=== PATIENT | male | born 1965 | race Caucasian/White ===

== ENCOUNTER 2020-07-22 10:19 | Inpatient (IN) | payer OTHER, MEDICAID, SELFPAY ==
[2020-07-22] VITALS (16 sets, daily range): BP systolic 127–183; BP diastolic 80–118; PULSE 70–91; RESP 12–21; TEMP 36.4–36.9; O2SAT 94–99; BMI 27.6; BMI 23.6
--- NOTE | 2020-07-22 | DI.US.S_ITS ---
PROCEDURE: US CAROTID DOPPLER BI INDICATIONS: CVA TECHNIQUE: Color and pulse Doppler interrogation was performed of both carotid systems, with image documentation and velocity measurements. COMPARISON: None. FINDINGS: Stenosis calculations are based on SRU (Society of Radiologists in Ultrasound) criteria. The flow velocities and the arterial waveforms are normal within both carotid arterial systems. Atherosclerotic plaque is seen on both sides. The estimated degree of internal carotid artery stenosis is less than 50%. Antegrade flow is confirmed within both vertebral arteries. IMPRESSION: No hemodynamically significant stenosis is seen. Atherosclerotic plaque is noted bilaterally. Dictated by: Ravi Holder M.D. on 07/23/2020 at 11:53 Approved by: Ravi Holder M.D. on 07/23/2020 at 11:53
[2020-07-22 10:59] LABS: Add Manual Diff / Slide Review NO; Basophils Absolute Auto 100 /uL (0-100); Basophils Percent Auto 0.5 % (0-2); Eosinophils Absolute Auto 300 /uL (0-450); Eosinophils Percent Auto 2.4 % (2-4); Hematocrit 46.1 % (41-53); Hemoglobin 15.8 g/dL (13.5-17.5); Lymphocytes Absolute Auto 1400 /uL (1100-4500); Lymphocytes Percent Auto 13.5 % (25-40); Mean Corpuscular HGB Conc 34.2 % (30-36); Mean Corpuscular Hemoglobin 30.3 PG (26-34); Mean Corpuscular Volume 88.4 fL (80-100); Monocytes Absolute Auto 1000 /uL (0-900); Monocytes Percent Auto 9.3 % (3-14); Neutrophils Absolute Auto 7800 /uL (1500-7000); Neutrophils Percent Auto 74.3 % (50-75); Platelet Count 336 X10^3/uL (150-400); Red Blood Cell Count 5.22 X10^6/uL (4.5-5.9); Red Cell Distribution Width 14.1 % (11.6-14.8); White Blood Cell Count 10.5 X10^3/uL (4.5-11.0)
--- NOTE | 2020-07-22 11:08 | ED.NEUROSD ---
HPI - Neuro Symptoms/Deficit General Chief Complaint: Neuro Symptoms/Deficit Stated Complaint: Going paralyzed over body/poss Parkinsons Time Seen by Provider: 07/22/20 10:27 Source: patient Mode of arrival: Wheelchair Limitations: no limitations History of Present Illness HPI Narrative: Patient is a 55-year-old male who comes emergency department today with his brother for evaluation of what he describes as ?going paralyzed all over ?he states that his symptoms have been going on for the past year but really worsening over the past couple days/week. He is new to the area from [place]. He states that he was being evaluated in [place] for Parkinson's disease. He states that he does not have the diagnosis of Parkinson's disease but is being treated for it. When asked him what this medication was he said it was propanolol. When I questioned him about this he states that the propanolol was because of tremors. It does not appear that he is on any and levodopa/carbidopa. He does have an extensive alcohol history. Has not drank since March of this year. At that point he did try to commit suicide and cut his neck. He states he did this because of the shaking and that things were getting worse. He has not had anything to drink since March. He denies any other drugs. He states that he has had a ?silent stroke? in the past. He denies any residual deficits from this. Is not on anticoagulation. He states that over the past several days and weeks his tremor seem to be getting worse. He states he has a difficult time standing up. Once he can walk he has some difficulty with this but is still able to walk without assistance. He does describe trouble with stopping walking. And also trouble with sitting. Has not tried anything for his symptoms. Has not followed up with his new primary doctor here in the local area of with regard to this. On Anticoagulants: No Related Data Home Medications Medication Instructions Recorded Confirmed propranolol 10 mg PO TID PRN 07/22/20 07/22/20 Allergies Allergy/AdvReac Type Severity Reaction Status Date / Time No Known Drug Allergies Allergy Verified 07/22/20 10:55 Review of Systems Constitutional Constitutional: Denies fatigue, Denies fever(s), Denies frequent falls and Denies headache(s) Eyes Eyes: Reports blurry vision ENT Ears, Nose, Mouth, and Throat: Denies vertigo, Denies dizziness, Denies headache(s) and Reports disequilibrium Cardiovascular Cardiovascular: Denies chest pain, Denies syncope and Denies dyspnea Respiratory Respiratory: Denies dyspnea Genitourinary Genitourinary: Denies dysuria Genitourinary: Denies dysuria Musculoskeletal Musculoskeletal: Reports abnormal gait, Denies arthralgias, Denies back pain, Reports muscle cramps, Reports myalgias, Denies numbness and Reports stiffness Comments: Tremors Integumentary/Breasts Skin/Breast: Denies rash Neurologic Neurologic: Denies abnormal speech, Reports abnormal gait, Denies confusion, Denies vertigo, Denies dizziness, Denies syncope, Denies frequent falls, Denies headache(s), Reports lack of coordination, Denies memory loss, Denies numbness, Reports tremor(s) and Reports disequilibrium Psychiatric Psychiatric: Denies anxiety and Denies confusion Endocrine Endocrine: Denies fatigue Hematologic/Lymphatic On Anticoagulants: No Allergic/Immunologic Allergic/Immunologic: Denies urticaria Patient History Medical History Alcohol abuse Social History lives independently: Yes Exam Initial Vital Signs Initial Vital Signs: Vital Signs Temperature 98.5 F 07/22/20 10:34 Pulse Rate 78 07/22/20 10:34 Respiratory Rate 16 07/22/20 10:34 Blood Pressure 183/118 H 07/22/20 10:34 Pulse Oximetry 97 07/22/20 10:34 Const General: cooperative, anxious and diaphoretic Limitations: mental status not altered [facility] Head: normal to inspection and normocephalic Ears: hearing grossly normal bilaterally Nose: external nose normal Face and sinus: normal facial exam Mouth: oral mucosae normal Eyes General: appearance normal, both eyes and all related structures Pupils: PERRL EOM: EOM intact bilaterally Chest Chest: No crepitus and No tenderness Resp Effort & Inspection: normal respiratory effort Auscultation: clear to auscultation bilaterally Cardio Rate: regular rate Rhythm: regular rhythm GI Inspection: non-distended Palpation: soft and No tender Skin Lesions: no lesions Rashes: no rashes Other: Diaphoretic Neuro General: patient alert, patient awake and patient oriented x3 Cognition: normal cognition Other: Patient is alert oriented x3. Can move all 4 extremities equally. His cranial nerves are intact except for decreased sensation to light touch to the left side of his face. He also has some discomfort with smiling but this appears to be equal. His eye exam is unremarkable. [id number] and wiro-[id number]-[id number] bilaterally unremarkable although he does have some more discomfort with doing that on his left side. He describes decreased sensation to his left upper extremity left lower extremity to light touch. 4/5 strength bilateral lower extremities. 5/5 strength righ upper extremity. 4/5 strength left upper extremity. 2+ patella tendon equal bilaterally. 2+ biceps tendon bilaterally equal. Extrem General: normal to inspection, capillary refill normal and No edema Psych Appearance: grossly normal and disheveled Scores GCS [place] coma scale eye opening: Spontaneous [place] coma scale verbal response: Orientated [place] coma scale motor response: Obey commands [place] coma scale total score: 15 Course Orders Ordered: ED Orders 07/22/20 10:47 Ammonia (NH3) Stat Complete Blood Count AUTO DIFF Stat Comprehensive Metabolic Panel Stat Ethanol (ETOH) Stat Lipase Stat Thyroid Stimulating Hormone Stat 07/22/20 11:13 CT head/brain wo con Stat 07/22/20 11:18 Urinalysis and Microscopic Stat Urine Drug Screen, Rapid Stat 07/22/20 12:04 MR head/brain wo/w con Stat 07/22/20 13:42 EKG-12 Lead Stat Discontinued Medications Diazepam (Diazepam 5 Mg Tablet) 5 mg PO NOW ONE Stop: 07/22/20 11:13 Last Admin: 07/22/20 11:35 Dose: 5 mg Documented by: SAMUEL Diazepam (Diazepam 5 Mg Tablet) 5 mg PO NOW ONE Stop: 07/22/20 14:38 Last Admin: 07/22/20 14:43 Dose: 5 mg Documented by: BTONELoli Vital Signs Vital signs: Vital Signs - 8 hr 07/22/20 10:34 07/22/20 10:38 07/22/20 11:00 Temperature 98.5 F Pulse Rate 78 83 86 Respiratory Rate 16 21 18 Blood Pressure 183/118 H 146/98 H Pulse Oximetry 97 95 96 07/22/20 11:33 07/22/20 11:34 07/22/20 12:00 Temperature Pulse Rate 83 78 79 Respiratory Rate 17 16 Blood Pressure 154/88 H 144/80 H Pulse Oximetry 95 95 95 07/22/20 12:30 07/22/20 13:00 07/22/20 13:30 Temperature Pulse Rate 77 70 74 Respiratory Rate Blood Pressure 136/99 H 127/87 139/93 H Pulse Oximetry 94 95 96 07/22/20 14:00 07/22/20 14:30 07/22/20 15:37 Temperature Pulse Rate 81 91 H 87 Respiratory Rate Blood Pressure 153/99 H Pulse Oximetry 96 96 97 07/22/20 15:38 07/22/20 16:00 Temperature Pulse Rate 84 79 Respiratory Rate Blood Pressure 148/96 H 149/103 H Pulse Oximetry 97 97 MDM - Neuro Symptoms/Deficit Lab Data Attestation: I reviewed the patient's lab results. Result diagrams: 07/22/20 10:47 07/22/20 10:47 Labs: Lab Results 07/22/20 07/22/20 07/22/20 Range/Units 10:47 10:47 10:47 WBC 10.5 (4.5-11.0) X10^3/uL RBC 5.22 (4.5-5.9) X10^6/uL Hgb 15.8 (13.5-17.5) g/dL Hct 46.1 (41-53) % MCV 88.4 (80-100) fL MCH 30.3 (26-34) PG MCHC 34.2 (30-36) % RDW 14.1 (11.6-14.8) % Plt Count 336 (150-400) X10^3/uL Neut % (Auto) 74.3 (50-75) % Lymph % (Auto) 13.5 L (25-40) % [place] % (Auto) 9.3 (3-14) % Eos % (Auto) 2.4 (2-4) % Baso % (Auto) 0.5 (0-2) % Neut # (Auto) 7800 H (9122-1167) /uL Lymph # (Auto) 1400 (9241-2651) /uL [place] # (Auto) 1000 H (0-900) /uL Eos # (Auto) 300 (0-450) /uL Baso # (Auto) 100 (0-100) /uL Sodium 136 L (137-145) mmol/L Potassium 4.3 (3.4-5.1) mmol/L Chloride 101 (98-107) mmol/L Carbon Dioxide 26 (22-32) mmol/L BUN 20 (9-20) mg/dL Creatinine 0.67 (0.66-1.25) mg/dL Estimated GFR > 60.0 (>60) mL/min BUN/Creatinine Ratio 29.9 H (6-22) Glucose 121 H (70-100) mg/dL Calcium 10.2 (8.4-10.2) mg/dL Total Bilirubin 0.6 (0.2-1.3) mg/dL AST 24 (17-59) IU/L ALT 24 (<50) IU/L Alkaline Phosphatase 73 (38-126) U/L Ammonia (9-30) umol/L Total Protein 7.9 (6.3-8.2) g/dL Albumin 4.4 (3.5-5.0) g/dL Globulin 3.5 (1.7-4.1) g/dL Albumin/Globulin Ratio 1.3 (1.0-2.8) Lipase 108 (23-300) U/L TSH 0.778 (0.47-4.68) uIU/mL Urine Color Urine Appearance Urine pH (4.5-8.0) Ur Specific [place] (1.000-1.035) Urine Protein (Negative) Urine Glucose (UA) (Negative) g/dL Urine Ketones (NEGATIVE) Urine Occult Blood (Negative) Urine Nitrate (Negative) Urine Bilirubin (NEGATIVE) Urine Urobilinogen (0.2) E.U./dL Ur Leukocyte Esterase (NEGATIVE) Urine RBC (0-5/HPF) Urine WBC (0-5/HPF) Ur Squamous Epith Cells (0-5/HPF) Urine Bacteria (None) Hyaline Casts (None) Urine Mucus (Negative) Ur Culture Indicated? U Opiates 300ng/mL cut (Negative) Ur Oxycodone Screen (Negative) Urine Methadone Screen (Negative) Ur Barbiturates Screen (Negative) U Tricyclic Antidepress (Negative) Ur Phencyclidine Scrn (Negative) Ur Amphetamines Screen (Negative) U Methamphetamines Scrn (Negative) Ur MDMA Scrn (Ecstasy) (Negative) U Benzodiazepines Scrn (Negative) Urine Cocaine Screen (Negative) U Marijuana (THC) Screen (Negative) Ethyl Alcohol < 10 ( - 10) mg/dL 07/22/20 07/22/20 07/22/20 Range/Units 10:47 11:18 11:18 WBC (4.5-11.0) X10^3/uL RBC (4.5-5.9) X10^6/uL Hgb (13.5-17.5) g/dL Hct (41-53) % MCV (80-100) fL MCH (26-34) PG MCHC (30-36) % RDW (11.6-14.8) % Plt Count (150-400) X10^3/uL Neut % (Auto) (50-75) % Lymph % (Auto) (25-40) % [place] % (Auto) (3-14) % Eos % (Auto) (2-4) % Baso % (Auto) (0-2) % Neut # (Auto) (7154-3739) /uL Lymph # (Auto) (5884-8311) /uL [place] # (Auto) (0-900) /uL Eos # (Auto) (0-450) /uL Baso # (Auto) (0-100) /uL Sodium (137-145) mmol/L Potassium (3.4-5.1) mmol/L Chloride (98-107) mmol/L Carbon Dioxide (22-32) mmol/L BUN (9-20) mg/dL Creatinine (0.66-1.25) mg/dL Estimated GFR (>60) mL/min BUN/Creatinine Ratio (6-22) Glucose (70-100) mg/dL Calcium (8.4-10.2) mg/dL Total Bilirubin (0.2-1.3) mg/dL AST (17-59) IU/L ALT (<50) IU/L Alkaline Phosphatase (38-126) U/L Ammonia < 9 L (9-30) umol/L Total Protein (6.3-8.2) g/dL Albumin (3.5-5.0) g/dL Globulin (1.7-4.1) g/dL Albumin/Globulin Ratio (1.0-2.8) Lipase (23-300) U/L TSH (0.47-4.68) uIU/mL Urine Color Yellow Urine Appearance Clear Urine pH 5.5 (4.5-8.0) Ur Specific [place] 1.025 (1.000-1.035) Urine Protein 1+ H (Negative) Urine Glucose (UA) Negative (Negative) g/dL Urine Ketones Negative (NEGATIVE) Urine Occult Blood Negative (Negative) Urine Nitrate Negative (Negative) Urine Bilirubin Negative (NEGATIVE) Urine Urobilinogen 0.2 (0.2) E.U./dL Ur Leukocyte Esterase Negative (NEGATIVE) Urine RBC 0-1/hpf (0-5/HPF) Urine WBC 0-1/hpf (0-5/HPF) Ur Squamous Epith Cells 0-1 /hpf (0-5/HPF) Urine Bacteria Occasional (0-1) (None) Hyaline Casts 1-5/lpf (None) Urine Mucus 1+ H (Negative) Ur Culture Indicated? Cult not indicated U Opiates 300ng/mL cut Negative (Negative) Ur Oxycodone Screen Negative (Negative) Urine Methadone Screen Negative (Negative) Ur Barbiturates Screen Negative (Negative) U Tricyclic Antidepress Negative (Negative) Ur Phencyclidine Scrn Negative (Negative) Ur Amphetamines Screen Negative (Negative) U Methamphetamines Scrn Negative (Negative) Ur MDMA Scrn (Ecstasy) Negative (Negative) U Benzodiazepines Scrn Negative (Negative) Urine Cocaine Screen Negative (Negative) U Marijuana (THC) Screen Negative (Negative) Ethyl Alcohol ( - 10) mg/dL Imaging Data CT scan - head: Radiologist's Impression: [address] [id number] Scan ReportSigned Patient: Matheus OlivoMR#: [id number]: 1965Acct:[id number]/Sex: 55 / MDate of Service: 07/22/20Loc: EDAccession Number: [id number] Procedure: CT head/brain wo con Ordering Provider: Ignacio Hilario D.O. PROCEDURE: CT HEAD/BRAIN WO CON INDICATIONS: Tremors and weakness TECHNIQUE: Noncontrast 4.5 mm thick angled axial sections acquired from the foramen magnum to the vertex, with coronal and sagittal reformats. For radiation dose reduction, the following was used: automated exposure control, adjustment of mA and/or kV according to patient size. COMPARISON: None. FINDINGS: Image quality: Excellent. CSF spaces: Basal cisterns are patent. An arachnoid cyst can be seen involving the posterior aspect posterior fossa. There is narrowing of the left lateral ventricle. Brain: There is poorly defined low density seen involving the deep white matter of the left frontal lobe. This process measures at least 4.7 cm AP. There is associated mild mass effect, with minimal midline shift of 1-2 mm. No intracranial masses or hemorrhage. [place]ieto-white matter interface is normal. Skull and face: Calvarium and visualized facial bones are intact, without suspicious lesions. Incidental note is made of an abnormal C1 arch, with non fusion anteriorly and posteriorly, as on series 3, image 1. Sinuses: Visualized sinuses and mastoids are clear. IMPRESSION: Abnormal low-density can be seen involving the deep white matter of the left frontal lobe. Differential diagnosis includes an underlying neoplasm or brain edema. When clinically appropriate, a dedicated brain MRI (without and with contrast) is recommended for further evaluation (assuming that there is no contraindication). Note: Findings and recommendations discussed by telephone with Dr. Hilario at 11:02 a.m. [place] time on July 22, 2020. Dictated by: Ravi Holder M.D. on 07/22/2020 at 11:00 Approved by: Ravi Holder M.D. on 07/22/2020 at 11:03 MRI brain: Radiologist's Impression: [address] [id number] Resonance ReportSigned Patient: Matheus Olivo#: [id number]: 1965Acct:[id number]/Sex: 55 / MDate of Service: 07/22/20Loc: EDAccession Number: [id number] Procedure: MR head/brain wo/w con Ordering Provider: Ignacio Hilario D.O. PROCEDURE: MR HEAD/BRAIN WO/W CON INDICATIONS: poss mass seen on CT TECHNIQUE: Noncontrast axial T1 spin echo, axial T2 fast spin echo, sagittal and axial FLAIR, coronal T2 fast spin echo, axial gradient echo, axial diffusion and ADC through the brain. After the administration of contrast, axial and coronal 3D VIBE or T1 spin echo with fat saturation through the brain. COMPARISON: [facility], CT, CT HEAD/BRAIN WO CON, 07/22/2020, 11:17. FINDINGS: Image quality: Excellent. CSF Spaces: Basal cisterns are patent. There is an arachnoid cyst involving the posterior aspect of the posterior fossa. Brain: In this patient with this given history, scrutiny is given to the area of the CT abnormality within the deep white matter/superior basal ganglia of the left frontal lobe. At this site, there is mild abnormal FLAIR signal seen, as on series 7, image 15. Scrutiny is given to abnormal enhancement and none can be seen. No abnormal diffusion-weighted signal can be seen within this region to suggest acute or subacute infarction. Mass effect is seen, with narrowing of the left lateral ventricle and a minimal degree of midline shift, 1-2 mm. The brainstem appears normal. Diffusion-weighted images demonstrate no acute ischemic insults. No chronic ischemic insults. Normal intravascular flow voids are present. Skull and face: Calvarial marrow is normal in signal. Orbits appear normal. Sinuses: Sinuses and mastoids appear clear. IMPRESSION: No mass or abnormal enhancement can be seen at the site the CT abnormality. However, there is abnormal FLAIR signal seen as well as mass effect. This is felt most likely to be related to subacute to chronic ischemic change (at least 2-weeks-old). If clinically appropriate, please consider a follow-up brain MRI (without and with contrast) in 4-8 weeks. Dictated by: Ravi Holder M.D. on 07/22/2020 at 14:40 Approved by: Ravi Holder M.D. on 07/22/2020 at 14:49 ECG Data Attestation: I personally reviewed and interpreted this ECG as follows: Prior ECG tracings: not available for review Interpretation: Sinus rhythm Ventricular rate is 74 Normal axis Normal QRS Normal QTC No ST T wave changes MDM Narrative Medical decision making narrative: Patient does have a somewhat confusing presentation. Initially he stated that the symptoms that brought him in today started approximately 1 year ago but it seems that things have somewhat changed/worsened over the past couple days/week. His biggest complaint today is that he is having difficulty standing and getting out of the chair. His neurologic exam is also somewhat confusing. I did consider etiologies such as morning he has encephalopathy but he does not have any the ocular changes in his not encephalopathic. Consider Korsakoff's syndrome. Considered [place] however does not fit this presentation either. There is still the possibility of MS. Also considered other infectious etiologies such as encephalitis/meningitis but again he does not fit these specific pathology patterns. The non con head CT was concerning for potential frontal lobe mass. The subsequent MRI was not consistent with a mass but more consistent with a subacute to chronic ischemic change. This could potentially be causing his worsening of symptoms over the past several days. I discussed the case with tele stroke who did not feel the patient needed emergent tPA and I agree with this. She recommended that I speak with the neurologist. I then spoke with Dr. James with Neurology at [facility] in [place]. He recommended admitting the patient for further stroke workup to include cardiac monitoring, echocardiogram, aspirin and statin. He stated that if his progression over the next several hours/days is not consistent with a subacute stroke then he would consider doing lumbar puncture and an MRI of the spine and potential transfer for further neurologic evaluation. I discussed the case with Dr. Stevenson with Internal Medicine who will admit for further evaluation treatment. I did discuss this with the patient. We did discuss the need for admission. They both expressed understanding agreement. Discharge Plan Departure Patient Disposition: Admitted As Inpatient Clinical Impression: Cerebrovascular accident, Essential tremor Admit Date/Time: 07/22/20 17:31 Admit Provider: Femi Stevenson
[2020-07-22 11:12] LABS: Alanine Aminotransferase 24 IU/L (<50); Albumin 4.4 g/dL (3.5-5.0); Albumin Globulin Ratio 1.3 (1.0-2.8); Alkaline Phosphatase 73 U/L (38-126); Ammonia (NH3) < 9 umol/L (9-30); Aspartate Aminotransferase 24 IU/L (17-59); BUN Creatinine Ratio 29.9 (6-22); Bilirubin Total 0.6 mg/dL (0.2-1.3); Blood Urea Nitrogen 20 mg/dL (9-20); Calcium 10.2 mg/dL (8.4-10.2); Carbon Dioxide 26 mmol/L (22-32); Chloride 101 mmol/L (98-107); Estimated Glomerular Filt Rate > 60.0 mL/min (>60); Ethanol (ETOH) < 10 mg/dL; Globulin 3.5 g/dL (1.7-4.1); Glucose 121 mg/dL (70-100); HEMOLYSIS < 15 (0-50); Lipase 108 U/L (23-300); Potassium 4.3 mmol/L (3.4-5.1); Sodium 136 mmol/L (137-145); Total Protein 7.9 g/dL (6.3-8.2)
--- NOTE | 2020-07-22 11:13 | DI.CT.S_ITS ---
PROCEDURE: CT HEAD/BRAIN WO CON INDICATIONS: Tremors and weakness TECHNIQUE: Noncontrast 4.5 mm thick angled axial sections acquired from the foramen magnum to the vertex, with coronal and sagittal reformats. For radiation dose reduction, the following was used: automated exposure control, adjustment of mA and/or kV according to patient size. COMPARISON: None. FINDINGS: Image quality: Excellent. CSF spaces: Basal cisterns are patent. An arachnoid cyst can be seen involving the posterior aspect posterior fossa. There is narrowing of the left lateral ventricle. Brain: There is poorly defined low density seen involving the deep white matter of the left frontal lobe. This process measures at least 4.7 cm AP. There is associated mild mass effect, with minimal midline shift of 1-2 mm. No intracranial masses or hemorrhage. Nieto-white matter interface is normal. Skull and face: Calvarium and visualized facial bones are intact, without suspicious lesions. Incidental note is made of an abnormal C1 arch, with non fusion anteriorly and posteriorly, as on series 3, image 1. Sinuses: Visualized sinuses and mastoids are clear. IMPRESSION: Abnormal low-density can be seen involving the deep white matter of the left frontal lobe. Differential diagnosis includes an underlying neoplasm or brain edema. When clinically appropriate, a dedicated brain MRI (without and with contrast) is recommended for further evaluation (assuming that there is no contraindication). Note: Findings and recommendations discussed by telephone with Dr. Hilario at 11:02 a.m. [place] time on July 22, 2020. Dictated by: Ravi Holder M.D. on 07/22/2020 at 11:00 Approved by: Ravi Holder M.D. on 07/22/2020 at 11:03
[2020-07-22 11:24] LABS: Appearance Urine UA CLEAR; Bilirubin Urine UA NEGATIVE (NEGATIVE); Color Urine UA YELLOW; Glucose Urine UA NEGATIVE (Negative); Ketones Urine UA NEGATIVE (NEGATIVE); Leukocyte Esterase Urine UA NEGATIVE (NEGATIVE); Nitrite Urine UA NEGATIVE (Negative); Occult Blood Urine UA NEGATIVE (Negative); Protein Urine UA 1+ (Negative); Specific Gravity Urine UA 1.025 (1.000-1.035); Urobilinogen Urine UA 0.2 E.U./dL (0.2); pH Urine UA 5.5 (4.5-8.0)
[2020-07-22 11:29] LABS: UR Morphine/Opiate cutoff 300 Negative (Negative); Ur Creatinine Normal (Normal); Ur Specific Gravity Normal (Normal); Urine Amphetamines Negative (Negative); Urine Barbiturates Negative (Negative); Urine Benzodiazepines Negative (Negative); Urine Cocaine Negative (Negative); Urine MDMA Negative (Negative); Urine Methadone Negative (Negative); Urine Methamphetamines Negative (Negative); Urine Oxycodone Negative (Negative); Urine Phencyclidine Negative (Negative); Urine Tetrahydrocannabinol Negative (Negative); Urine Tricyclic Antidepressant Negative (Negative); Urine pH Normal (Normal)
[2020-07-22] MEDS: diazePAM 5 MG TABLET PO ×2 (11:35→14:43)
[2020-07-22 11:38] LABS: Bacteria Urine Occasional (0-1); Culture Indicated Urine Cult Not Indicated; Hyaline Casts Urine 1-5/LPF; Mucus Urine 1+ (Negative); RBC Urine 0-1/HPF (0-5/HPF); Squamous Epithelial Cell Urine 0-1 /HPF (0-5/HPF); WBC Urine 0-1/HPF (0-5/HPF)
[2020-07-22 11:50] LABS: Thyroid Stimulating Hormone 0.778 uIU/mL (0.47-4.68)
--- NOTE | 2020-07-22 12:04 | DI.MRI.S_ITS ---
PROCEDURE: MR HEAD/BRAIN WO/W CON INDICATIONS: poss mass seen on CT TECHNIQUE: Noncontrast axial T1 spin echo, axial T2 fast spin echo, sagittal and axial FLAIR, coronal T2 fast spin echo, axial gradient echo, axial diffusion and ADC through the brain. After the administration of contrast, axial and coronal 3D VIBE or T1 spin echo with fat saturation through the brain. COMPARISON: [facility], CT, CT HEAD/BRAIN WO CON, 07/22/2020, 11:17. FINDINGS: Image quality: Excellent. CSF Spaces: Basal cisterns are patent. There is an arachnoid cyst involving the posterior aspect of the posterior fossa. Brain: In this patient with this given history, scrutiny is given to the area of the CT abnormality within the deep white matter/superior basal ganglia of the left frontal lobe. At this site, there is mild abnormal FLAIR signal seen, as on series 7, image 15. Scrutiny is given to abnormal enhancement and none can be seen. No abnormal diffusion-weighted signal can be seen within this region to suggest acute or subacute infarction. Mass effect is seen, with narrowing of the left lateral ventricle and a minimal degree of midline shift, 1-2 mm. The brainstem appears normal. Diffusion-weighted images demonstrate no acute ischemic insults. No chronic ischemic insults. Normal intravascular flow voids are present. Skull and face: Calvarial marrow is normal in signal. Orbits appear normal. Sinuses: Sinuses and mastoids appear clear. IMPRESSION: No mass or abnormal enhancement can be seen at the site the CT abnormality. However, there is abnormal FLAIR signal seen as well as mass effect. This is felt most likely to be related to subacute to chronic ischemic change (at least 2-weeks-old). If clinically appropriate, please consider a follow-up brain MRI (without and with contrast) in 4-8 weeks. Dictated by: Ravi Holder M.D. on 07/22/2020 at 14:40 Approved by: Ravi Holder M.D. on 07/22/2020 at 14:49
--- NOTE | 2020-07-22 15:32 | PC.NURSE ---
Patient back from MRI, requesting to eat. Patient NPO until MRI results
--- NOTE | 2020-07-22 16:29 | PC.NURSE ---
Patient sitting in chair at bedside, eating food brother brought in. Ok Per MD Hilario
--- NOTE | 2020-07-22 19:15 | DI.ECHO.S_ITS ---
[place] [facility]---------+ [facility] +---------+ : : [address] : [address] : : : : [id number] : : : : Phone: [phone]+ Echocardiogram Report + + :Name: CHEMO MALDONADO Study Date: 07/23/2020 Height: 74 in : :[facility] ReadingLocation: Weight: 215 lb : : Gender: Male BSA: 2.2 m2 : :: 1965 Age: 55 yrs BP: 135/80 mmHg: :Reason For Study: CVA : :Ordering Physician: FLACA, : :ZUNILDA Performed By: Padmini Bloom : :Referring: ZUNILDA THAYER : + + Interpretation Summary The left ventricle is grossly normal size. The ejection fraction is estimated to be 60-65%. No obvious LV thrombus. The right ventricle is normal in size and function. No significant valvular pathology seen. Injection of contrast documented no interatrial shunt. The ascending aorta is mildly enlarged. No significant atherosclerotic plaque in the aortic arch. The IVC is of normal diameter and collapses greater than 50% with a sniff. This suggests a low right atrial pressure of 3 mm Hg. The patient was in sinus rhythm with heart rates between 74-82 bpm during the exam. Procedure: A two-dimensional transthoracic echocardiogram with color flow and Doppler was performed. The study quality was technically adequate. There is no prior echocardiogram noted for this patient. The injection was performed through an intravenous line in the left arm. The patient was in sinus rhythm with heart rates between 74-82 bpm during the exam. Left Ventricle: The left ventricle is grossly normal size. There is normal left ventricular wall thickness. There is no thrombus. The ejection fraction is estimated to be 60-65%. There are no obvious focal wall motion abnormalities noted but poor endocardial definition reduces the sensitivity for the detection of such. Diastolic parameters suggest a relaxation abnormality of the left ventricle, consistent with probable normal filling pressures. Right Ventricle: The right ventricle is normal in size and function. Atria: Both atria are normal in size. There is no Doppler evidence for an interatrial shunt. Injection of contrast documented no interatrial shunt. Mitral Valve: The mitral valve leaflets appear mildly thickened, but open well. There is mild mitral annular calcification. The mitral valve leaflets are mildly calcified. The mitral valve chordae are thickened and/or calcified. Redundant elongated chordae are noted. There is trace mitral regurgitation. Aortic Valve: The aortic valve is not well visualized. The aortic valve opens well. There is no aortic valve stenosis. No aortic regurgitation is present. Tricuspid Valve: The tricuspid valve is normal. There is trace tricuspid regurgitation. Pulmonary artery pressures cannot be estimated because of the lack of a measurable TR jet velocity but the IVC suggests a CVP of around 3 mmHg. Pulmonic Valve: The pulmonic valve is not well seen, but is grossly normal. There is no pulmonic valvular regurgitation. Great Vessels: The aortic root is normal size. The ascending aorta is mildly enlarged. The IVC is of normal diameter and collapses greater than 50% with a sniff. This suggests a low right atrial pressure of 3 mm Hg. Pericardium/ Pleura There is no pericardial effusion. There is no pleural effusion. MMode/2D Measurements & Calculations LVIDd: 4.6 cm LVOT diam: 2.1 cm LVIDs: 2.9 cm Ao root diam: 3.8 cm FS: 36.2 % asc Aorta Diam: 3.7 cm IVSd: 1.0 cm Ao Arch Diam (Prox Trans): 2.9 cm LVPWd: 1.0 cm LV jamison. diameter/BSA (cm/m^2): 2.0 LV sys. diameter/BSA (cm/m^2): 1.3 LA A2 area: 15.9 cm2 RA long axis: 4.6 cm LA A4 area: 12.5 cm2 RA area: 12.9 cm2 LA length (vol): 4.2 cm RA vol: 30.8 ml LA vol: 39.9 ml RA : 13.7 ml/m2 LA vol index: 17.8 ml/m2 IVC diam: 0.89 cm RVD1 (basal): 3.5 cm TAPSE: 1.9 cm Doppler Measurements & Calculations Ao V2 max: 97.5 cm/sec LVOT Max Joni: 91.9 cm/sec Ao V2 mean: 72.8 cm/sec LV V1 max P.4 mmHg Ao max P.8 mmHg LV V1 VTI: 18.8 cm Ao mean P.3 mmHg KARIME(I,D): 3.2 cm2 Ao V2 VTI: 20.8 cm KARIME(V,D): 3.3 cm2 sev ratio: 0.91 KARIME indexed to BSA (cm^2/m^2): 1.4 MV E max joni: 49.7 cm/sec PA V2 max: 75.9 cm/sec MV A max joni: 54.1 cm/sec PA V2 mean: 57.4 cm/sec MV E/A: 0.92 PA mean P.4 mmHg Med Peak E' Joni: 4.9 cm/sec PA pr(Accel): 32.8 mmHg E/E' med: 10.1 Lat Peak E' Joni: 8.0 cm/sec E/E' lat: 6.2 E/e' average: 8.2 MV dec time: 0.23 sec SV(LVOT): 65.5 ml Reading Physician:01:07 PM
[2020-07-22 20:31] LABS: COVID19 - ADMIT (NP swab/PCR) Negative (Negative)
[2020-07-22] MEDS: ASPIRIN 325 MG TABLET PO (20:44)
[2020-07-22] MEDS: OXYCODONE IR 5 MG TABLET PO (20:45)
[2020-07-22] MEDS: CYCLOBENZAPRINE 10 MG TABLET PO (20:45)
[2020-07-22] MEDS: PROPRANOLOL 40 MG TABLET PO (20:46)
[2020-07-22] MEDS: ATORVASTATIN 20 MG TABLET 80 MG PO (21:34)
[2020-07-22] MEDS: MELATONIN 3 MG TABLET 6 MG PO (21:34)
--- NOTE | 2020-07-22 22:54 | P.HP_ITS ---
History of Present Illness History of Present Illness Date Patient Seen: 07/22/20 Time Patient Seen: 17:54 Chief complaint: Going paralyzed over body/poss Parkinsons Narrative: Mr. Olivo is a 55M with PMH of tremor, alcohol abuse quit in march 2020, ?CVA who states that he has been having neurologic symptoms that have been progressively getting worse. History is vague and difficult to get a clear answer. Patient states that he recently arrived in [place] from [place]. He was being seen in [place] for a tremor that developed in his left hand. Apparently he had previously been prescribed primidone, and is now prescribed propanolol. This indicates that patient was probably thought to have essential tremor. Per the ED note, there was workup for Parkinsons, but per patient he never saw a neurologist, and the patient now says he self-diagnosed as Parkinson s and has not been diagnosed as such. He did state he tried to commit suicide in March due to the worsening tremors. He has progressively been worsening and over the last two weeks has noted a tremor in his right hand. He has difficulty with rising from chair. He has difficulty with starting or stopping walking. He has difficulty with sitting. He has slowed speech. He has some drooling. He has not had hallucination, he has not had altered mental status. He has not had incontinence. He denies fevers or chills. No abdominal pain. No shortness of breath. No difficulty with vision, no difficulty with swallowing. Patient History Medical History Alcohol abuse Family & Social History Social History: household members other Prior Living Arrangements House lives independently Yes Safety & Behavioral: Feels Safe in Current Yes Environment Been Physically Hurt or No Threatened By a Person Suicidal Ideation Description None Suicide Plan Description No Plan Tobacco & Substance use: Smoking Status Former smoker alcohol intake former Meds Home Medications and Allergies Home Medications Medication Instructions Recorded Confirmed Type propranolol 10 mg PO TID PRN 07/22/20 07/22/20 History Allergies Allergy/AdvReac Type Severity Reaction Status Date / Time No Known Drug Allergies Allergy Verified 07/22/20 10:55 Review of Systems Review of Systems Narrative: 14 systems reviewed and negative aside from what is noted in HPI Exam Vital Signs (past 8 hours): - 07/22/20 15:37 07/22/20 15:38 07/22/20 16:00 Temperature Pulse Rate 87 84 79 Respiratory Rate Blood Pressure 148/96 H 149/103 H Pulse Oximetry 97 97 97 07/22/20 18:54 07/22/20 21:33 Temperature 97.5 F L Pulse Rate 88 87 Respiratory Rate 12 16 Blood Pressure 149/86 H 135/80 Pulse Oximetry 99 96 Oxygen Delivery Method Room Air Oxygen Flow Rate 0 Narrative Exam Narrative: GEN: no acute distress, masked facies HEENT: moist mucous membranes, PERRL CV: RRR, no murmurs PULM: CTAB/L, no wheezes, rhonchi, rales ABD: soft, nontender, nondistended, no organomegaly EXT: warm and well perfused with no edema NEURO: awake and alert x3, he has decreased sensation per his report in his left shoulder and left arm, extraocular movements intact, 4/5 strength left upper and lower extremity with 5/5 strength on the right. He is slow to initiate movement, he has resting tremor on his left arm, he does have rigidity of his left extremities PSYCH: flat affect Objective Labs Result Diagrams: 07/22/20 10:47 07/22/20 10:47 Labs: Laboratory Results - last 24 hr 07/22/20 07/22/20 07/22/20 10:47 10:47 10:47 WBC 10.5 RBC 5.22 Hgb 15.8 Hct 46.1 MCV 88.4 MCH 30.3 MCHC 34.2 RDW 14.1 Plt Count 336 Neut % (Auto) 74.3 Lymph % (Auto) 13.5 L [place] % (Auto) 9.3 Eos % (Auto) 2.4 Baso % (Auto) 0.5 Neut # (Auto) 7800 H Lymph # (Auto) 1400 [place] # (Auto) 1000 H Eos # (Auto) 300 Baso # (Auto) 100 Sodium 136 L Potassium 4.3 Chloride 101 Carbon Dioxide 26 BUN 20 Creatinine 0.67 Estimated GFR > 60.0 BUN/Creatinine Ratio 29.9 H Glucose 121 H Calcium 10.2 Total Bilirubin 0.6 AST 24 ALT 24 Alkaline Phosphatase 73 Ammonia Total Protein 7.9 Albumin 4.4 Globulin 3.5 Albumin/Globulin Ratio 1.3 Lipase 108 TSH 0.778 Urine Color Urine Appearance Urine pH Ur Specific [place] Urine Protein Urine Glucose (UA) Urine Ketones Urine Occult Blood Urine Nitrate Urine Bilirubin Urine Urobilinogen Ur Leukocyte Esterase Urine RBC Urine WBC Ur Squamous Epith Cells Urine Bacteria Hyaline Casts Urine Mucus Ur Culture Indicated? Nasal Screen MRSA (PCR) U Opiates 300ng/mL cut Ur Oxycodone Screen Urine Methadone Screen Ur Barbiturates Screen U Tricyclic Antidepress Ur Phencyclidine Scrn Ur Amphetamines Screen U Methamphetamines Scrn Ur MDMA Scrn (Ecstasy) U Benzodiazepines Scrn Urine Cocaine Screen U Marijuana (THC) Screen Ethyl Alcohol < 10 SARS-CoV-2 (PCR) 07/22/20 07/22/20 07/22/20 10:47 11:18 11:18 WBC RBC Hgb Hct MCV MCH MCHC RDW Plt Count Neut % (Auto) Lymph % (Auto) [place] % (Auto) Eos % (Auto) Baso % (Auto) Neut # (Auto) Lymph # (Auto) [place] # (Auto) Eos # (Auto) Baso # (Auto) Sodium Potassium Chloride Carbon Dioxide BUN Creatinine Estimated GFR BUN/Creatinine Ratio Glucose Calcium Total Bilirubin AST ALT Alkaline Phosphatase Ammonia < 9 L Total Protein Albumin Globulin Albumin/Globulin Ratio Lipase TSH Urine Color Yellow Urine Appearance Clear Urine pH 5.5 Ur Specific [place] 1.025 Urine Protein 1+ H Urine Glucose (UA) Negative Urine Ketones Negative Urine Occult Blood Negative Urine Nitrate Negative Urine Bilirubin Negative Urine Urobilinogen 0.2 Ur Leukocyte Esterase Negative Urine RBC 0-1/hpf Urine WBC 0-1/hpf Ur Squamous Epith Cells 0-1 /hpf Urine Bacteria Occasional (0-1) Hyaline Casts 1-5/lpf Urine Mucus 1+ H Ur Culture Indicated? Cult not indicated Nasal Screen MRSA (PCR) U Opiates 300ng/mL cut Negative Ur Oxycodone Screen Negative Urine Methadone Screen Negative Ur Barbiturates Screen Negative U Tricyclic Antidepress Negative Ur Phencyclidine Scrn Negative Ur Amphetamines Screen Negative U Methamphetamines Scrn Negative Ur MDMA Scrn (Ecstasy) Negative U Benzodiazepines Scrn Negative Urine Cocaine Screen Negative U Marijuana (THC) Screen Negative Ethyl Alcohol SARS-CoV-2 (PCR) 07/22/20 07/22/20 19:18 19:18 WBC RBC Hgb Hct MCV MCH MCHC RDW Plt Count Neut % (Auto) Lymph % (Auto) [place] % (Auto) Eos % (Auto) Baso % (Auto) Neut # (Auto) Lymph # (Auto) [place] # (Auto) Eos # (Auto) Baso # (Auto) Sodium Potassium Chloride Carbon Dioxide BUN Creatinine Estimated GFR BUN/Creatinine Ratio Glucose Calcium Total Bilirubin AST ALT Alkaline Phosphatase Ammonia Total Protein Albumin Globulin Albumin/Globulin Ratio Lipase TSH Urine Color Urine Appearance Urine pH Ur Specific [place] Urine Protein Urine Glucose (UA) Urine Ketones Urine Occult Blood Urine Nitrate Urine Bilirubin Urine Urobilinogen Ur Leukocyte Esterase Urine RBC Urine WBC Ur Squamous Epith Cells Urine Bacteria Hyaline Casts Urine Mucus Ur Culture Indicated? Nasal Screen MRSA (PCR) Negative for mrsa U Opiates 300ng/mL cut Ur Oxycodone Screen Urine Methadone Screen Ur Barbiturates Screen U Tricyclic Antidepress Ur Phencyclidine Scrn Ur Amphetamines Screen U Methamphetamines Scrn Ur MDMA Scrn (Ecstasy) U Benzodiazepines Scrn Urine Cocaine Screen U Marijuana (THC) Screen Ethyl Alcohol SARS-CoV-2 (PCR) Negative Assessment & Plan Assessment & Plan narrative: Mr. Olivo is a 55M with PMH of long standing alcohol use, quite in march, previous suicide attempt, and progressively worsening neurologic symptoms of unclear etiology found to imaging to have had possible subacute stroke. 1. Subacute stroke, possible -radiology read is somewhat equivocal, but states that most likely cause of findings is subacute stroke -subacute nature would fit in timeline of patient's worsening symptoms -ED physician spoke to neurology Dr. James at [facility] and discussed neurologic findings, and CT/MRI of brain -neurology recommended admit here and workup further for stroke with echo, aspirin, and statin -if these are not consistent with subacute stroke then LP and MRI spine can be considered next and to recall neurology to consider transfer -overall clinical presentation per my evaluation is less likely to be stroke, and think it is unlikely basal ganglia white matter stroke would cause presenting symptoms -for now will workup MRI findings: echo, carotid us, a1c, lipids ordered for risk stratification -ordered for aspirin and statin -q4 NIH scores -PT/OT speech therapy consult 2. Parkinsonism, chronic -patient has been presumably diagnosed with essential tremor as he is given propanolol and primidone previously -however his possible differential is quite broad -parkinsons, ET, MSA, lewy body dementia, or other similar parkinsonism diseases -in order to further evaluate would benefit from neurology evaluation either inp atient or outpatient -would plan to reconsult neurology pending completion of stroke workup -for now will continue propanolol for tremor, may be able to increase dose if needed or may consider gabapentin if needed additional treatment 3. Chronic alcohol abuse, history of -encourage continued abstinence from alcohol IVF: none DIET: pending swallow screen DVT ppx: lovenox sc Code: DNR, proxy is brotherJason Bijan MIPS - Admit I confirm the patient?s Advance Care Plan is present, Code status is documented, Surrogate decision maker is in patient?s record [If Yes, STOP here]: Yes
--- NOTE | 2020-07-22 23:29 | PC.ADMIT ---
[email or web address] Admission Note: The patient,Matheus Olivo,55 y/o, was given written information regarding hospital policies, unit procedures and contact persons. Patient's smoking status: Former smoker. Vital Signs - 8 hr 07/22/20 15:37 07/22/20 15:38 07/22/20 16:00 Temperature Pulse Rate 87 84 79 Respiratory Rate Blood Pressure 148/96 H 149/103 H Pulse Oximetry 97 97 97 07/22/20 18:54 07/22/20 21:33 Temperature 97.5 F L Pulse Rate 88 87 Respiratory Rate 12 16 Blood Pressure 149/86 H 135/80 Pulse Oximetry 99 96 Patient admitted for stroke symptoms by hospitalist. This RN assessed NIH at 3 for limb ataxia and slight slurred speech. Vitals WNL. Medications sent to pharmacy. Patient oriented to room and call light system. Able to make needs known. Brother at bedside.
[2020-07-23] VITALS (7 sets, daily range): BP systolic 126–150; BP diastolic 82–102; PULSE 68–89; RESP 14–19; TEMP 36.2–36.6; O2SAT 95–99
[2020-07-23 05:00] LABS: Add Manual Diff / Slide Review NO; Basophils Absolute Auto 100 /uL (0-100); Basophils Percent Auto 0.5 % (0-2); Eosinophils Absolute Auto 400 /uL (0-450); Eosinophils Percent Auto 3.9 % (2-4); Hematocrit 42.4 % (41-53); Hemoglobin 14.4 g/dL (13.5-17.5); Lymphocytes Absolute Auto 2200 /uL (1100-4500); Lymphocytes Percent Auto 23.2 % (25-40); Mean Corpuscular HGB Conc 33.9 % (30-36); Mean Corpuscular Volume 88.6 fL (80-100); Monocytes Absolute Auto 1200 /uL (0-900); Monocytes Percent Auto 12.1 % (3-14); Neutrophils Absolute Auto 5800 /uL (1500-7000); Neutrophils Percent Auto 60.3 % (50-75); Platelet Count 308 X10^3/uL (150-400); Red Blood Cell Count 4.79 X10^6/uL (4.5-5.9); White Blood Cell Count 9.6 X10^3/uL (4.5-11.0)
[2020-07-23 05:15] LABS: BUN Creatinine Ratio 36.5 (6-22); Blood Urea Nitrogen 27 mg/dL (9-20); Calcium 9.7 mg/dL (8.4-10.2); Carbon Dioxide 31 mmol/L (22-32); Chloride 100 mmol/L (98-107); Estimated Glomerular Filt Rate > 60.0 mL/min (>60); Glucose 98 mg/dL (70-100); HEMOLYSIS < 15 (0-50); Potassium 4.3 mmol/L (3.4-5.1); Sodium 137 mmol/L (137-145)
[2020-07-23 05:18] LABS: Cholesterol 174 mg/dL (140-199); HDL Cholesterol 42 mg/dL (40-60); LDL Cholesterol Calculated 110 mg/dL (<100); Triglycerides 110 mg/dL (35-150)
--- NOTE | 2020-07-23 06:52 | PC.NURSE ---
Rack Worker Note-Patient slept all night, woke in am for lab draws, ate a snack, no swallowing problems. NIH 3, rigidness, mild tremors, and pain continues to LUE and LLE, has difficulty starting with ambulating, needs SBA. SR w/ BBB, VSS.
[2020-07-23 06:55] LABS: Hemoglobin A1C% w Est Avg Glu 5.9 % (4.0-6.0)
[2020-07-23] MEDS: OXYCODONE IR 5 MG TABLET PO (09:45)
[2020-07-23] MEDS: ASPIRIN EC 81 MG TABLET PO (09:45)
[2020-07-23] MEDS: CYCLOBENZAPRINE 10 MG TABLET PO ×2 (09:45→21:14)
[2020-07-23] MEDS: SODIUM CHLORIDE 0.9% FLUSH 10 ML IV ×2 (09:45→21:15)
--- NOTE | 2020-07-23 12:10 | PT.IIE ---
Medical History Alcohol abuse Physical Therapy Inpatient Evaluation/Re-Eval M1 PT/OT-IP Prior Functional Status Start: 07/23/20 12:49 Freq: NEEDED Status: Active Protocol: Document 07/23/20 12:10 AB (Rec: 07/23/20 13:03 AB [email or web address]) Medical Review Prior Functional Status Medical History Reviewed Yes Communication able to make needs known Mobility and Gait pt stated that he is modified independent with all mobilities and ambulation using SPC but occasionally FWW . pt stated that he uses SPC more often than FWW Social History Household Members other Living Arrangements House Number of Floors (Floors) One Floor Number of Stairs To Enter/Railing? 6 steps L rail ascending Home Environment Standard Height Toilet,Walk in Shower Home Equipment Front Wheel Walker,Straight Cane Additional Social History Comment pt stated that he lives in a house with roommates and there will not be any assistance at home for him M2 PT-IP Current Condition Start: 07/23/20 12:49 Freq: NEEDED Status: Active Protocol: Document 07/23/20 12:10 AB (Rec: 07/23/20 13:03 [email or web address]) Physical Therapy Current Condition Current Condition Evaluation Date 07/23/20 Treatment Diagnosis CVA; parkinsonism; difficulty in walking Onset Date 07/22/20 Precautions Other Precautions falls M3 PT-IP Subjective Start: 07/23/20 12:49 Freq: NEEDED Status: Active Protocol: Document 07/23/20 12:10 AB (Rec: 07/23/20 13:03 [email or web address]) Subjective Physical Therapy Visit Type Type Initial Evaluation Visit Start Time 12:10 Visit Stop Time 12:40 Total Visit Minutes 30 Number of POWER MARKETER Visits 0 Physical Therapy Visit Comments Patient Comments pt is agreeable to do PT and is requesting to use the toilet Therapy Pain Assessment Pain When Pain Assessed At Rest Pain Present Pain Present Pain Reported Location Left Hip Scale Used pain scale not stated Pain Management Techniques Distraction,Modification of Treatment M4 PT-IP Mobility and Gait Start: 07/23/20 12:49 Freq: NEEDED Status: Active Protocol: Document 07/23/20 12:10 AB (Rec: 07/23/20 13:03 AB [email or web address]) PT-Bed Mobility Assessment Supine to Sit Supine to Sit Standby Assistance PT-Transfer Assessment Sit to and From Stand Sit to and from Stand Contact Guard Assistance, Minimal Assistance,1 Person Assistance,Use of Upper Extremities Equipment Transfer Assistive Device Gait Belt,Front Wheeled Walker Orthotic/Prosthetic Devices or Brace: No Transfers Transfer Destination Toilet Transfer Technique ambulated using FWW Transfer Ability Level of Assist Minimal Assistance,Moderate Assistance,Use of Upper Extremities Comments Mobility Comments pt completed supine to sit SBA . was able to sit on EOB SBA. completed sit to stand CGA to min A. pt can be impulsive and instructed to slow down. pt stated that it is harder to move when he does things slow and feels like he is stuck. completed ambulation to the toilet using FWW min to mod A and cues. presents with ataxic gait, forward head/trunk posture with episodes of feezing requiring assist for weight shifting for initiation of steps/movement. pt was able to maintain standing CGA while assisted with brief management. ambulated towards the sink using FWW min A and max cues and was able to maintain standing CGA while completing handwashing. pt ambulated to the chair using FWW min A. educated pt on safety and weight shifting techniques to assist with ambulation. completed sit to stand from chair CGA to min A. instructed with marching in place and to increase LE elevation and completed with mod A and max cues. presents with difficulty with LLE elevation with (+) tremores on LUE/LE. pt agreed to stay up on chair. call light and table placed within reach. Gait Assessment Gait Gait Assistance Required: Minimum Assistance,Maximum Assistance Distance (Feet) 15 Able to Maintain Weight Bearing Status Yes During Gait Assistive Devices Assistive Device Gait Belt,Front Wheeled Walker Orthotic/Prosthetic Devices or Brace: No Gait Deviations General Gait Pattern Ataxic,Decreased Stride Length ,Decreased Feet Clearance, Festinating,Flexed Trunk, Narrow Based Gait Factors Limiting Gait Function Factors Limiting Gait Function Abnormal Tonal Influences, Decreased Activity Tolerance, Decreased Sensation,Decreased Strength,Difficulty Following Directions,Limited Range of Motion,Pain,Poor Balance,Poor Safety Awareness PT-Balance Assessment Sitting Balance and Reactions Static Sitting Balance Ability Good Dynamic Sitting Balance Ability Fair Standing Balance and Reactions Static Standing Balance Ability Fair Dynamic Standing Balance Ability Poor Device Used FWW M5 PT-IP Objective Assessments Start: 07/23/20 12:49 Freq: NEEDED Status: Active Protocol: Document 07/23/20 12:10 AB (Rec: 07/23/20 13:03 AB [email or web address]) Orientation Orientation/Cognition Level of Alertness Alert Orientation Name,Place,Situation Language Function Ability No Deficits Noted Safety Awareness Decreased Safety Awareness Gross Range of Motion Lower Extremity ROM Assessment Within Functional Limits Strength Lower Extremity Strength Assessment Left Impaired Hip 4-/5 Knee 3+/5 Sensation Assessment Sensation Gross Sensation Left UE Impaired,Right LE Impaired,Left LE Impaired Sensation Description Numbness Comments Sensation Comments c/o numbness on L hand/fingers and bilateral toes Muscle Tone Muscle Tone WNL No Muscle Tone Location Left Upper Extremity Type of Tone Hypertonicity Severity of Tone Moderate Manifistation of Tone Resting Tremors M6 PT-IP Treatment Start: 07/23/20 12:49 Freq: NEEDED Status: Active Protocol: Document 07/23/20 12:10 AB (Rec: 07/23/20 13:03 AB [email or web address]) Physical Therapy Treatment Education Education Provided Safety M7 PT-IP Assessment and Plan Start: 07/23/20 12:49 Freq: NEEDED Status: Active Protocol: Document 07/23/20 12:10 AB (Rec: 07/23/20 13:03 AB [email or web address]) PT Summary Assessment and Plan Potential Rehabilitation Potential Good Status of Condition at Evaluation Evolving Summary Impairments Pain,ROM,Strength,Balance, Coordination,Sensation,Tone, Cognition,Bed Mobility, Transfers,Gait,Activity Tolerance Assessment Summary pt requiring mod A with ambulation using FWW with max cues with all tasks. pt with freezing episodes and needed assist to initiate movement. pt lives alone and does not have any assistance at home and will need to be more independent than current level . pt will need SNF rehab to improve mobility and independence. Goals Bed Mobility Goal Standby Assistance Transfer Goal Standby Assistance,Front Wheeled Walker Gait Goal Standby Assistance,Front Wheel Walker Gait Distance 100 Other Goals improve ambualtion using SPC SBA 100 ft p/down 6 steps L rail + SPC SBA Days to Meet Goals 10 Frequency of Treatment Frequency Of Treatment Once a Day Treatment Plan Physical Therapy Treatment Plan Bed Mobility Training,Transfer Training,Gait Training, Therapeutic Exercise,Balance Retraining,Discharge Planning, Hot or Cold Pack,Neuromuscular Re-ed,Coordination Retraining ,Manual Therapy Precautions Other Precautions falls Recommendations To Nursing Amount of Assist Needed 1 Person Assist Discharge Recommendations PT Discharge Recommendations SNF Rehab Transportation Needs at Discharge Wheelchair/Cabulance
--- NOTE | 2020-07-23 14:09 | DIET.PN ---
Dietary Progress Note Assessment: 55y M admitted with progressively worsening neurologic sx described by patient as body-wide charley horse with inability to move L arm which is in contracture referred to nutrition for reported weight loss. HT: 74 WT:185# (-13% in 3mo, severe) UBW: 230# but more recently 213# BMI: 23.6 Pt reports neurological sx worsening since March. Pt lives alone without local support. Pt unable to chop food on plate or prepare meals secondary to impaired motor fxn, pt unable to open bag of bread himself, unable to open carton of milk74. Pt has been subsisting on water and cold, canned ravioli and cold, canned spaghetti, canned fruit cocktail x3mo. Pt able to consume these foods because they have a flip top lid he can open. Labs: A1c 5.9 WNL, TC 174 WNL, LDL 110 MNA:5 malnourished Eulalio:21 Nutrition Diagnosis: Severe Acute PCM r/t inability to self feed aeb -13% unintentional weight loss in 3mo (severe), pt reports reduced appetite, pt reports subsisting on cold canned ravioli and water x3mo as this is all he can prepare for himself functionally, pt has recent hx of etoh overuse. Interventions: 1. Recc pt secure local support for help with meals once d/c to support nutrition status. 2. Recc ONS blueberry, banana, yogurt smoothie c dinners to support nutrition status between meals. 3. If pt starts levodopa meds, educated pt on loading PRO intake at nighttime to avoid food/medication interactions. Diet Order: c chopped food EER: 2,100kcal (25kcal/kg), 108g PRO (1.3g/kg per PCM) Monitoring/Evaluations: POs, ONS tolerance
--- NOTE | 2020-07-23 14:23 | PC.NURSE ---
Day Shift Note Alert and oriented x3. SBA with FWW to and from bathroom. Has difficulty initiating steps but steady once moving. Tremors to LUE. NIH score 1 this shift, able to hold up left arm without drift, left leg remains weak. 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 Call light within reach, using appropriately to make needs known. Bed alarm on for safety.
--- NOTE | 2020-07-23 14:55 | OT.IP.EVAL ---
Past Medical History Alcohol abuse Occupational Therapy Inpatient Evaluation/Re-Eval M1 PT/OT-IP Prior Functional Status Start: 07/23/20 12:49 Freq: NEEDED Status: Active Protocol: Document 07/23/20 14:55 [facility] (Rec: 07/23/20 17:40 [facility] [id number]) Medical Review Prior Functional Status Medical History Reviewed Yes Communication able to make needs known Mobility and Gait pt stated that he is modified independent with all mobilities and ambulation using SPC but occasionally FWW . Pt stated that he uses SPC more often than FWW Activities of Daily Living and IADL's Pt states prior had difficulties to dress, toilet and could only pour water on himself for showers as not able to use his LUE to assist fro showering needs. Social History Household Members other Living Arrangements House Number of Floors (Floors) One Floor Number of Stairs To Enter/Railing? 6 steps L rail ascending Home Environment Standard Height Toilet,Walk in Shower Home Equipment Front Wheel Walker,Straight Cane Additional Social History Comment pt stated that he lives in a house with roommates and there will not be any assistance at home for him M2 OT-IP Current Condition Start: 07/23/20 17:16 Freq: Status: Active Protocol: Document 07/23/20 14:55 [facility] (Rec: 07/23/20 17:40 [facility] [id number]) Occupational Therapy Current Condition Current Condition Evaluation Date 07/23/20 Treatment Diagnosis CVA, tremors Diagnosis Onset Date 07/22/20 M3 OT- IP Subjective and Pain Start: 07/23/20 17:16 Freq: Status: Active Protocol: Document 07/23/20 14:55 [facility] (Rec: 07/23/20 17:40 [facility] [id number]) OT- Subjective Occupational Therapy Visit Type Type Re-Evaluation Visit Start Time 14:55 Visit Stop Time 15:38 Total Visit Minutes 43 Occupational Therapy Visit Comments Patient Comments Pt agreed to get up and work with Ot. Patient/Caregiver Goals TO go to rehab and get back to being able to care for himself. OT Pain Assessment Pain When Pain Assessed At Rest Pain Present Pain Present Pain Reported Location Left Hip Intensity 2 Scale Used Numeric (0 - 10) M4 OT- IP ADL's Start: 07/23/20 17:16 Freq: Status: Active Protocol: Document 07/23/20 14:55 [facility] (Rec: 07/23/20 17:40 [facility] [id number]) OT [id number] Comments OT Self-Feeding Comments Per chart, pt needing assist for set-up . OT ADL-Grooming General Evaluation Grooming Ability Standby Assistance Areas Needing Assistance Retrieving/Set-up of Grooming Items OT ADL-Oral Care General Eval Oral Care Ability Independent OT ADL-Dressing General Eval Lower Body Dressing Ability Moderate Assistance Comments OT Dressing Comments Assist to help pull up brief over his left side of his hips . OT ADL-Toileting General Evaluation Toileting Ability Minimal Assistance Areas Needing Assistance Manage Clothing OT ADL-Bathing Comments OT Bathing Comments Not performed. M5 OT- IP IADL's Start: 07/23/20 17:16 Freq: Status: Active Protocol: Document 07/23/20 14:55 [facility] (Rec: 07/23/20 17:40 [facility] [id number]) OT-Instrumental Activities of Daily Living Home Safety Awareness Awareness of Need for Assistance at Home Good Awareness Ability to Problem Solve Emergency Able to Problem Solve Situations M6 OT- IP Functional Cognition Start: 07/23/20 17:16 Freq: Status: Active Protocol: Document 07/23/20 14:55 [facility] (Rec: 07/23/20 17:40 [facility] [id number]) Cognitive Factors Limiting Selfcare Function Cognitive Ability Level of Alertness Alert Patient Orientation Name,Date,Year,Day of Week, Place,Situation Attention Span Ability Capable of Focused Attention, Capable of Sustained Attention Ability to Follow Commands Able to Follow One Step Commands Memory Description Short Term Impaired Cognitive Tests SLUMS Pt scored 20/30 on the SLUMS and normal score for pt's level of education is 27/30. Pt having the most difficulty with short term memory, able to recall 1/5 objects after time passed and able to answer 1/4 questions right after paragraph read. Pt states prior has had a decreased memory. Cognitive Comments Cognitive Assessment Comments Pt needing increased time for movements, especially during small movement and turns with the FWW. Pt states knows what he wants to do but that his left side of his body will not cooperate and that he gets frustrated. OT- Vision and Hearing OT- Hearing Assessment OT- Hearing Assessment WFL OT- Vision Assessment Visual Acuity Glasses All The Time Vision Assessment Comments Pt complaining of blurred vision and hoping to get new glasses soon. M7 OT- IP Mobility and Balance Start: 07/23/20 17:16 Freq: Status: Active Protocol: Document 07/23/20 14:55 [facility] (Rec: 07/23/20 17:40 [facility] [id number]) OT- Bed Mobility Assessment Rolling Type of Rolling Roll to Right Level of Assistance Standby Assistance Supine to Sit Supine to Sit Assist Standby Assistance Sit to Supine Sit to Supine Assist Standby Assistance OT-Transfer Assessment Sit to and From Stand Sit to and from Stand Standby Assistance,Contact Guard Assistance Transfers Transfer Ability Standby Assistance,Contact Guard Assistance Technique Transfer Destination Bed,Toilet Transfer Technique Stand Step Pivot Devices Transfer Assistive Devices Gait Belt,Front Wheeled Walker Comments Mobility Comments Pt tends to use momentum to help get to the edge of the bed. Cued pt to push up from the bed to stand to FWW. OT- Balance Assessment Sitting Balance and Reactions Static Sitting Balance Ability Good Dynamic Sitting Balance Ability Fair Standing Balance and Reactions Static Standing Balance Ability Fair Dynamic Standing Balance Ability Poor M8 OT- IP Objective Assessments Start: 07/23/20 17:16 Freq: Status: Active Protocol: Document 07/23/20 14:55 [facility] (Rec: 07/23/20 17:40 [facility] [id number]) OT Gross Range of Motion Upper Extremity Range of Motion Assessment Left Impaired OT Strength Comments Strength Comments Pt's left biceps and glove boarder 4/5, unable to supinate forearm or facilitate triceps while in supine. To further assess MMT tomorrow. OT- Coordination Assessment Upper Extremity Finger to Nose Test Left UE Impaired OT-Muscle Tone Assessment Muscle Tone WNL No Muscle Tone Location Left Upper Extremity Type of Tone Hypertonicity Severity of Tone Moderate OT Sensation Assessment Comments Summary Comments Decreased sensation for LUE. M9 OT- IP Assessment and Plan Start: 07/23/20 17:16 Freq: Status: Active Protocol: Document 07/23/20 14:55 [facility] (Rec: 07/23/20 17:40 [facility] [id number]) OT Summary Assessment and Plan Potential Rehabilitation Potential Good Analytic Complexity at Evaluation Moderate Summary OT Impairments Range of Motion,Strength, Balance,Coordination,Sensation ,Tone,Functional Cognition, Functional Mobility,Self- Feeding,Grooming,Dressing, Toileting,Bathing,Toilet Transfers,Shower Transfers, Activity Tolerance Progress Towards Goals Slow Progress due to Medical Issues,Slow Progress due to Activity Tolerance,Slow Progress due to Cognition Assessment Summary Pt MOD complexity and main barriers are steps, ataxia, and decreased function for LUE and LLE. Pt would benefit from skilled rehab as not safe to go home at this time. Goals Self-Feeding Goal Independent Grooming Goal Independent Dressing Goal Independent Toileting Goal Independent Bathing Goal Independent Toilet Transfer Goal Independent Shower Transfer Goal Independent Days to Meet Goals 20 Frequency of Treatment Frequency Of Treatment Once a Day Treatment Plan OT Treatment Plan ADL Training,Functional Cognition Training,Functional Mobility,Patient/Family Education,Discharge Planning Other Treatment Recommendations and Next shower Treatment Focus Discharge Recommendations OT Discharge Recommendations SNF Rehab Transportation Needs at Discharge Wheelchair/Cabulance
[2020-07-23] MEDS: BISACODYL 5 MG TABLET PO (16:03)
[2020-07-23] MEDS: polyethylene glycoL 3350 17 GM POWD.PACK PO (16:04)
--- NOTE | 2020-07-23 17:18 | PM.PN.1 ---
Subjective Subjective Date Patient Seen: 07/23/20 Time Patient Seen: 13:00 Interval history: Mr. Olivo is a 55M with PMH of long standing alcohol use, quit in march, previous suicide attempt, and progressively worsening neurologic symptoms of what sound to be worsening rigidity who was admitted with slightly worsening weakness and found to have a subacute CVA. He reports mild improvement in his symptoms today with a muscle relaxant but still is quite stiff and slow. He reports taking 20 minutes to put on pants at home due to stiffness and pain. This has previously been affecting his left side primarily, but now is worsened on the right. He is having difficulty performing his activities of daily living due to this continued rigidity. Exam Vital Signs (past 8 hours): - 07/23/20 13:22 Pulse Rate 81 Respiratory Rate 19 Blood Pressure 145/102 H Pulse Oximetry 98 Oxygen Delivery Method Room Air Oxygen Flow Rate 0 Narrative Exam Narrative: GEN: no acute distress, masked facies HEENT: moist mucous membranes, PERRL CV: RRR, no murmurs PULM: CTAB/L, no wheezes, rhonchi, rales ABD: soft, nontender, nondistended, no organomegaly EXT: warm and well perfused with no edema NEURO: awake and alert x3, reported sensation deficits improved today, extraocular movements intact, 5/5 strength left upper and lower extremity with 5/5 strength on the right. He is slow to initiate movement, he has resting tremor on his left arm, he does have rigidity of his left extremities and to a lesser extent his right. PSYCH: flat affect, calm and cooperative with stable behavior. Objective Labs Result Diagrams: 07/23/20 04:30 07/23/20 04:30 Labs: Laboratory Results - last 24 hr 07/22/20 07/22/20 07/23/20 19:18 19:18 04:30 WBC 9.6 RBC 4.79 Hgb 14.4 Hct 42.4 MCV 88.6 MCH 30.0 MCHC 33.9 RDW 14.0 Plt Count 308 Neut % (Auto) 60.3 Lymph % (Auto) 23.[address] [place] % (Auto) 12.1 Eos % (Auto) 3.9 Baso % (Auto) 0.5 Neut # (Auto) 5800 Lymph # (Auto) 2200 [place] # (Auto) 1200 H Eos # (Auto) 400 Baso # (Auto) 100 Sodium Potassium Chloride Carbon Dioxide BUN Creatinine Estimated GFR BUN/Creatinine Ratio Glucose Hemoglobin A1c Calcium Triglycerides Cholesterol LDL Cholesterol, Calc HDL Cholesterol Nasal Screen MRSA (PCR) Negative for mrsa SARS-CoV-2 (PCR) Negative 07/23/20 07/23/20 07/23/20 04:30 04:30 04:30 WBC RBC Hgb Hct MCV MCH MCHC RDW Plt Count Neut % (Auto) Lymph % (Auto) [place] % (Auto) Eos % (Auto) Baso % (Auto) Neut # (Auto) Lymph # (Auto) [place] # (Auto) Eos # (Auto) Baso # (Auto) Sodium 137 Potassium 4.3 Chloride 100 Carbon Dioxide 31 BUN 27 H Creatinine 0.74 Estimated GFR > 60.0 BUN/Creatinine Ratio 36.5 H Glucose 98 Hemoglobin A1c 5.9 Calcium 9.7 Triglycerides 110 Cholesterol 174 LDL Cholesterol, Calc 110 H HDL Cholesterol 42 Nasal Screen MRSA (PCR) SARS-CoV-2 (PCR) PFSH Medical History Alcohol abuse Social History household members: other lives independently: Yes Smoking Status: Former smoker alcohol intake: former Assessment & Plan Assessment & Plan narrative: Mr. Olivo is a 55M with PMH of long standing alcohol use, quite in march, previous suicide attempt, and progressively worsening neurologic symptoms of unclear etiology found to imaging to have had possible subacute stroke. 1. Subacute stroke, present on admission -radiology read is somewhat equivocal, but states that most likely cause of findings is subacute stroke -subacute nature would fit in timeline of patient's worsening symptoms, although progressive parkinsonian symptoms could also explain this. -ED physician spoke to neurology Dr. aJmes at [facility] and discussed neurologic findings, and CT/MRI of brain -neurology recommended admit here and workup further for stroke with echo, aspirin, and statin -if these are not consistent with subacute stroke then LP and MRI spine can be considered next and to recall neurology to consider transfer. -overall clinical presentation per my evaluation is less likely to be stroke, and think it is unlikely basal ganglia white matter stroke would cause presenting symptoms. This is highly consistent with parkinsonism. -stroke evaluation without significant additional findings. -ordered for aspirin and statin -q4 NIH scores -PT/OT speech therapy consult 2. Parkinsonism, progressive. -patient has been presumably diagnosed with essential tremor as he is given propanolol and primidone previously -however his possible differential is quite broad but likely parkinsonian rigidity. These symptoms are leading to impairment of his daily living including inability to adequately feed himself. Slightly improved with muscle relaxant. -parkinsons, ET, MSA, lewy body dementia, or other similar parkinsonism diseases -in order to further evaluate would benefit from neurology evaluation either inpatient or outpatient, his symptoms are improved with a muscle relaxant currently. -will likely need to reconsult neurology to see if to start trial of levodopa here, transfer, or defer to outpatient neurology. -for now will continue propanolol for tremor, may be able to increase dose if needed or may consider gabapentin if needed additional treatment 3. Chronic alcohol abuse, history of -encourage continued abstinence from alcohol IVF: none DIET: per speech. DVT ppx: lovenox sc Code: DNR, proxy is brotherJason
[2020-07-23] MEDS: PROPRANOLOL 40 MG TABLET PO (19:50)
[2020-07-23] MEDS: ENOXAPARIN 40 MG/0.4 ML SYRINGE SUBCUT (21:14)
[2020-07-23] MEDS: SENNOSIDES 8.6 MG TABLET 17.2 MG PO (21:14)
[2020-07-23] MEDS: MELATONIN 3 MG TABLET 6 MG PO (21:14)
[2020-07-23] MEDS: ATORVASTATIN 20 MG TABLET 80 MG PO (21:14)
[2020-07-24] MEDS: OXYCODONE IR 5 MG TABLET PO ×4 (00:10→21:17)
--- NOTE | 2020-07-24 00:23 | PC.NURSE ---
0000- NIH completed as patient work up is negative. Will continue to monitor and reinstate if there are clinical findings to support.
[2020-07-24 03:38] VITALS: BP 140/93; PULSE 76; RESP 16; TEMP 36.6; O2SAT 94
[2020-07-24 05:11] LABS: BUN Creatinine Ratio 46.6 (6-22); Blood Urea Nitrogen 27 mg/dL (9-20); Calcium 9.8 mg/dL (8.4-10.2); Carbon Dioxide 27 mmol/L (22-32); Chloride 102 mmol/L (98-107); Estimated Glomerular Filt Rate > 60.0 mL/min (>60); Glucose 114 mg/dL (70-100); HEMOLYSIS < 15 (0-50); Magnesium 1.9 mg/dL (1.6-2.3); Potassium 4.1 mmol/L (3.4-5.1); Sodium 135 mmol/L (137-145)
[2020-07-24 08:00] VITALS: BP 138/96; PULSE 83; RESP 18; TEMP 36.8; O2SAT 96
[2020-07-24] MEDS: polyethylene glycoL 3350 17 GM POWD.PACK PO (08:45)
[2020-07-24] MEDS: CYCLOBENZAPRINE 10 MG TABLET PO (08:45)
[2020-07-24] MEDS: ASPIRIN EC 81 MG TABLET PO (08:45)
[2020-07-24] MEDS: SODIUM CHLORIDE 0.9% FLUSH 10 ML IV ×2 (08:46→21:18)
[2020-07-24] MEDS: CARBIDOPA-LEVODOPA 25/100 TABLET 1 EACH PO ×3 (09:40→21:17)
--- NOTE | 2020-07-24 09:49 | PT.IPTN ---
Current Diagnoses Cerebral infarction, unspecified (07/22/20) Physical Therapy Treatment Note M2 PT-IP Current Condition Start: 07/23/20 12:49 Freq: NEEDED Status: Active Protocol: Document 07/23/20 12:10 [facility] (Rec: 07/23/20 13:03 AB [id number]) Physical Therapy Current Condition Current Condition Evaluation Date 07/23/20 Treatment Diagnosis CVA; parkinsonism; difficulty in walking Onset Date 07/22/20 Precautions Other Precautions falls M3 PT-IP Subjective Start: 07/23/20 12:49 Freq: NEEDED Status: Active Protocol: Document 07/24/20 09:39 HH (Rec: 07/24/20 09:49 HH [email or web address]) Subjective Physical Therapy Visit Type Type Treatment Note Visit Start Time 09:10 Visit Stop Time 09:30 Total Visit Minutes 20 Number of BELLOWS FILLER Visits 0 Physical Therapy Visit Comments Patient Comments pt is agreeable to do PT. Therapy Pain Assessment Pain When Pain Assessed At Rest Pain Present Pain Present Pain Reported Location Left Hip Intensity 2 Scale Used Numeric (0 - 10) Pain Management Techniques Distraction,Modification of Treatment M4 PT-IP Mobility and Gait Start: 07/23/20 12:49 Freq: NEEDED Status: Active Protocol: Document 07/24/20 09:39 [facility] (Rec: 07/24/20 09:49 HH [email or web address]) PT-Transfer Assessment Sit to and From Stand Sit to and from Stand Contact Guard Assistance,1 Person Assistance,Use of Upper Extremities Equipment Transfer Assistive Device Gait Belt,Front Wheeled Walker Orthotic/Prosthetic Devices or Brace: No Transfers Transfer Destination Chair Transfer Technique ambulated using FWW Transfer Ability Level of Assist Contact Guard Assistance,1 Person Assistance,Use of Upper Extremities Comments Mobility Comments 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 Stated that he has been feeling better and regained some ROM and strength of his LUE. He was able to reach with LUE and completed finger opposition test slowly. pt then began to amb with this PT with gait belt and FWW . Pt showed less tremors and frozen episodes today. He was able to initiate LE movements with less hesitation but he did freeze mildly during turns . Pt completed amb in ICU floor for 1 lap 200 ft. pt was able to do stand step pivot while turning to right but had to pivot through push press and body rotation for L turns. He then reported of fatigue after and requested to go back to his room. He was able to transfer himself back to chair safely with UE to descend CGA . Call light placed within reach. Gait Assessment Gait Gait Assistance Required: Contact Guard Assist,1 Person Assist Distance (Feet) 200 Assistive Devices Assistive Device Gait Belt,Front Wheeled Walker Orthotic/Prosthetic Devices or Brace: No Gait Deviations General Gait Pattern Ataxic,Decreased Stride Length ,Decreased Feet Clearance, Festinating,Flexed Trunk, Narrow Based Gait Factors Limiting Gait Function Factors Limiting Gait Function Abnormal Tonal Influences, Decreased Activity Tolerance, Decreased Sensation,Decreased Strength,Difficulty Following Directions,Limited Range of Motion,Pain,Poor Balance,Poor Safety Awareness Comments Gait Comments see mobility comments. Stair Climbing Assessment Comments Stair Climbing Comments unable to assess PT-Balance Assessment Sitting Balance and Reactions Static Sitting Balance Ability Good Dynamic Sitting Balance Ability Fair Standing Balance and Reactions Static Standing Balance Ability Good Dynamic Standing Balance Ability Fair Device Used FWW M5 PT-IP Objective Assessments Start: 07/23/20 12:49 Freq: NEEDED Status: Active Protocol: Document 07/23/20 12:10 [facility] (Rec: 07/23/20 13:03 [email or web address]) Orientation Orientation/Cognition Level of Alertness Alert Orientation Name,Place,Situation Language Function Ability No Deficits Noted Safety Awareness Decreased Safety Awareness Gross Range of Motion Lower Extremity ROM Assessment Within Functional Limits Strength Lower Extremity Strength Assessment Left Impaired Hip 4-/5 Knee 3+/5 Sensation Assessment Sensation Gross Sensation Left UE Impaired,Right LE Impaired,Left LE Impaired Sensation Description Numbness Comments Sensation Comments c/o numbness on L hand/fingers and bilateral toes Muscle Tone Muscle Tone WNL No Muscle Tone Location Left Upper Extremity Type of Tone Hypertonicity Severity of Tone Moderate Manifistation of Tone Resting Tremors M6 PT-IP Treatment Start: 07/23/20 12:49 Freq: NEEDED Status: Active Protocol: Document 07/23/20 12:10 AB (Rec: 07/23/20 13:03 AB [email or web address]) Physical Therapy Treatment Education Education Provided Safety M7 PT-IP Assessment and Plan Start: 07/23/20 12:49 Freq: NEEDED Status: Active Protocol: Document 07/24/20 09:39 HH (Rec: 07/24/20 09:49 HH [email or web address]) PT Summary Assessment and Plan Potential Rehabilitation Potential Good Status of Condition at Evaluation Evolving Summary Impairments Pain,ROM,Strength,Balance, Coordination,Sensation,Tone, Cognition,Bed Mobility, Transfers,Gait,Activity Tolerance Assessment Summary pt shows significant improvements today with improved LUE gross and fine motor control who is able to amb 200ft with decreased freezing episodes. However, pt still needs constant close supervision d/t his high fall risks so SNF rehab is still the best option for him at this point Goals Bed Mobility Goal Standby Assistance Transfer Goal Standby Assistance,Front Wheeled Walker Gait Goal Standby Assistance,Front Wheel Walker Gait Distance 100 Other Goals improve ambualtion using SPC SBA 100 ft p/down 6 steps L rail + SPC SBA Days to Meet Goals 10 Frequency of Treatment Frequency Of Treatment Once a Day Treatment Plan Physical Therapy Treatment Plan Bed Mobility Training,Transfer Training,Gait Training, Therapeutic Exercise,Balance Retraining,Discharge Planning, Hot or Cold Pack,Neuromuscular Re-ed,Coordination Retraining ,Manual Therapy Precautions Other Precautions falls Recommendations To Nursing Amount of Assist Needed 1 Person Assist Discharge Recommendations PT Discharge Recommendations SNF Rehab Transportation Needs at Discharge Wheelchair/Cabulance
[2020-07-24 12:00] VITALS: BP 129/86; PULSE 89; RESP 17; TEMP 36.8; O2SAT 93
--- NOTE | 2020-07-24 14:26 | OT.IP.TRT ---
Current Diagnoses Cerebral infarction, unspecified (07/22/20) Occupational Therapy Treatment Note M2 OT-IP Current Condition Start: 07/23/20 17:16 Freq: Status: Active Protocol: Document 07/23/20 14:55 [facility] (Rec: 07/23/20 17:40 [facility] [id number]) Occupational Therapy Current Condition Current Condition Evaluation Date 07/23/20 Treatment Diagnosis CVA, tremors Diagnosis Onset Date 07/22/20 M3 OT- IP Subjective and Pain Start: 07/23/20 17:16 Freq: Status: Active Protocol: Document 07/24/20 15:24 [facility] (Rec: 07/24/20 15:31 [facility] [id number]) OT- Subjective Occupational Therapy Visit Type Type Treatment Note Visit Start Time 13:52 Visit Stop Time 14:26 Total Visit Minutes 34 Occupational Therapy Visit Comments Patient Comments Pt states tired but agreed to do stretching for LUE. Patient/Caregiver Goals TO go to skilled rehab. OT Pain Assessment Pain When Pain Assessed At Rest Pain Present Pain Present Pain Reported Location Left Hip Intensity 2 Scale Used Numeric (0 - 10) M4 OT- IP ADL's Start: 07/23/20 17:16 Freq: Status: Active Protocol: Document 07/23/20 14:55 [facility] (Rec: 07/23/20 17:40 [facility] [id number]) OT [id number] Comments OT Self-Feeding Comments Per chart, pt needing assist for set-up . OT ADL-Grooming General Evaluation Grooming Ability Standby Assistance Areas Needing Assistance Retrieving/Set-up of Grooming Items OT ADL-Oral Care General Eval Oral Care Ability Independent OT ADL-Dressing General Eval Lower Body Dressing Ability Moderate Assistance Comments OT Dressing Comments Assist to help pull up brief over his left side of his hips . OT ADL-Toileting General Evaluation Toileting Ability Minimal Assistance Areas Needing Assistance Manage Clothing OT ADL-Bathing Comments OT Bathing Comments Not performed. M5 OT- IP IADL's Start: 07/23/20 17:16 Freq: Status: Active Protocol: Document 07/23/20 14:55 [facility] (Rec: 07/23/20 17:40 [facility] [id number]) OT-Instrumental Activities of Daily Living Home Safety Awareness Awareness of Need for Assistance at Home Good Awareness Ability to Problem Solve Emergency Able to Problem Solve Situations OT- Vision and Hearing OT- Hearing Assessment OT- Hearing Assessment WFL OT- Vision Assessment Visual Acuity Glasses All The Time Vision Assessment Comments Pt complaiing of blurried vision and hoping to get new glasses soon. OT- Balance Assessment Sitting Balance and Reactions Static Sitting Balance Ability Good Dynamic Sitting Balance Ability Fair Standing Balance and Reactions Static Standing Balance Ability Fair Dynamic Standing Balance Ability Poor M8 OT- IP Objective Assessments Start: 07/23/20 17:16 Freq: Status: Active Protocol: Document 07/24/20 15:24 [facility] (Rec: 07/24/20 15:31 [facility] [id number]) OT Gross Range of Motion Upper Extremity Range of Motion Assessment Left Impaired OT Strength Comments Strength Comments Today pt able to actively flex and extend his fingers and also able to do thumb to fingers opposition on left hand. Pt still having difficulty to to initiate activation of supinators in left forearm and triceps. OT- Coordination Assessment Comments Coordination Comments Pt able to grasp the call light today and reach up to his glasses to take off with his left hand today. Pt feel the medication is really helping his tone, in addition pt states slept well for the 1st time in one year. OT-Muscle Tone Assessment Muscle Tone Location Left Upper Extremity Type of Tone Hypertonicity Severity of Tone Mild M9 OT- IP Assessment and Plan Start: 07/23/20 17:16 Freq: Status: Active Protocol: Document 07/24/20 15:24 [facility] (Rec: 07/24/20 15:31 [facility] [id number]) OT Summary Assessment and Plan Potential Rehabilitation Potential Good Analytic Complexity at Evaluation Moderate Summary OT Impairments Range of Motion,Strength, Balance,Coordination,Sensation ,Tone,Functional Cognition, Functional Mobility,Self- Feeding,Grooming,Dressing, Toileting,Bathing,Toilet Transfers,Shower Transfers, Activity Tolerance Progress Towards Goals Slow Progress due to Medical Issues,Slow Progress due to Activity Tolerance,Slow Progress due to Cognition Assessment Summary Noted improvement with left arm function and now able to assist more for his needs. However pt still has lot of weakness in LUE and LLE , in addition to decreased control. Pt would benefit from skilled rehab and motivated to care for himself again. Goals Self-Feeding Goal Independent Grooming Goal Independent Dressing Goal Independent Toileting Goal Independent Bathing Goal Independent Toilet Transfer Goal Independent Shower Transfer Goal Independent Days to Meet Goals 15 Frequency of Treatment Frequency Of Treatment Once a Day Treatment Plan OT Treatment Plan ADL Training,Functional Cognition Training,Functional Mobility,Patient/Family Education,Discharge Planning Other Treatment Recommendations and Next shower Treatment Focus Discharge Recommendations OT Discharge Recommendations SNF Rehab Transportation Needs at Discharge Wheelchair/Cabulance
[2020-07-24] MEDS: BISACODYL 5 MG TABLET PO ×2 (14:32→21:17)
[2020-07-24 16:19] VITALS: BP 130/87; PULSE 89; RESP 16; TEMP 36.8; O2SAT 95
--- NOTE | 2020-07-24 16:27 | CM.DPNOTE ---
DCP Note Referral discussed at [facility], will discuss further after she reviews. CARLEE
--- NOTE | 2020-07-24 16:49 | PM.PN.1 ---
Subjective Subjective Date Patient Seen: 07/24/20 Time Patient Seen: 16:49 Interval history: Mr. Olivo is a 55M with PMH of long standing alcohol use, quit in march, previous suicide attempt, and progressively worsening neurologic symptoms of what sound to be worsening rigidity who was admitted with slightly worsening weakness and found to have a subacute CVA. He reports mild improvement in his symptoms today with a muscle relaxant but still is quite stiff and slow. I did discuss with Neurology at [facility] in [place] today and given his disability, they did recommend a trial of Sinemet for at least a couple of weeks to see if there is any improvement and follow-up with an outpatient neurologist as soon as possible. Exam Vital Signs (past 8 hours): - 07/24/20 12:00 07/24/20 16:19 Temperature 98.2 F 98.2 F Pulse Rate 89 89 Respiratory Rate 17 16 Blood Pressure 129/86 130/87 Pulse Oximetry 93 95 Oxygen Delivery Method Room Air Oxygen Flow Rate 0 Narrative Exam Narrative: GEN: no acute distress, masked facies HEENT: moist mucous membranes, PERRL CV: RRR, no murmurs PULM: CTAB/L, no wheezes, rhonchi, rales ABD: soft, nontender, nondistended, no organomegaly EXT: warm and well perfused with no edema NEURO: awake and alert x3, reported sensation deficits improved today, extraocular movements intact, 5/5 strength left upper and lower extremity with 5/5 strength on the right. He is slow to initiate movement, he has resting tremor on his left arm, he does have rigidity of his left extremities and to a lesser extent his right. PSYCH: flat affect, calm and cooperative with stable behavior. Objective Labs Result Diagrams: 07/23/20 04:30 07/24/20 04:50 Labs: Laboratory Results - last 24 hr 07/24/20 04:50 Sodium 135 L Potassium 4.1 Chloride 102 Carbon Dioxide 27 BUN 27 H Creatinine 0.58 L Estimated GFR > 60.0 BUN/Creatinine Ratio 46.6 H Glucose 114 H Calcium 9.8 Magnesium 1.9 PFSH Medical History Alcohol abuse Social History household members: other lives independently: Yes Smoking Status: Former smoker alcohol intake: former Assessment & Plan Assessment & Plan narrative: Mr. Olivo is a 55M with PMH of long standing alcohol use, quite in march, previous suicide attempt, and progressively worsening neurologic symptoms of likely parkinsonism found to imaging to have had possible subacute stroke. 1. Subacute to old stroke, present on admission -radiology read is somewhat equivocal, but states that most likely cause of findings is subacute stroke -subacute nature would fit in timeline of patient's worsening symptoms, although progressive parkinsonian symptoms could also explain this. -ED physician spoke to neurology Dr. James at [facility] and discussed neurologic findings, and CT/MRI of brain -neurology recommended admit here and workup further for stroke with echo, aspirin, and statin. Reconsulted given rigidity and as discussed below. Relevant discussion including review of the MRI states this this may be indicative of old CVA (>2 weeks), rather than subacute. -overall clinical presentation per my evaluation is less likely to be stroke, and think it is unlikely basal ganglia white matter stroke would cause presenting symptoms. This is highly consistent with parkinsonism. -stroke evaluation without significant additional findings. -ordered for aspirin and statin -continue PT/OT/speech. 2. Parkinsonism, progressive. -patient has been presumably diagnosed with essential tremor as he is given propanolol and primidone previously -however his possible differential is quite broad but likely parkinsonian rigidity. These symptoms are leading to impairment of his daily living including inability to adequately feed himself. Slightly improved with muscle relaxant. -parkinsons, ET, MSA, lewy body dementia, or other similar parkinsonism diseases -reconsulted neurology at [place] via phone, recommended initiation of sinemet trial and prompt outpatient neurology follow up. -for now will continue propanolol for tremor, may be able to increase dose if needed or may consider gabapentin if needed additional treatment 3. Chronic alcohol abuse, history of -encourage continued abstinence from alcohol IVF: none DIET: per speech. DVT ppx: lovenox sc Code: DNR, proxy is brotherJason Dispo: possible discharge tomorrow pending PT/OT and unclear if SNF vs home depending on sinemet trial.
[2020-07-24 20:49] VITALS: BP 142/96; PULSE 81; RESP 16; TEMP 36.4; O2SAT 97
[2020-07-24] MEDS: ATORVASTATIN 20 MG TABLET 80 MG PO (21:16)
[2020-07-24] MEDS: MELATONIN 3 MG TABLET 6 MG PO (21:17)
[2020-07-24] MEDS: ENOXAPARIN 40 MG/0.4 ML SYRINGE SUBCUT (21:17)
[2020-07-24] MEDS: SENNOSIDES 8.6 MG TABLET 17.2 MG PO (21:17)
[2020-07-25] VITALS (7 sets, daily range): BP systolic 124–141; BP diastolic 77–105; PULSE 70–102; RESP 18–20; TEMP 36.2–36.7; O2SAT 95–97
[2020-07-25] MEDS: CYCLOBENZAPRINE 10 MG TABLET PO ×2 (05:06→23:32)
[2020-07-25] MEDS: OXYCODONE IR 5 MG TABLET PO (05:06)
[2020-07-25 05:33] LABS: BUN Creatinine Ratio 35.9 (6-22); Blood Urea Nitrogen 23 mg/dL (9-20); Calcium 9.8 mg/dL (8.4-10.2); Carbon Dioxide 30 mmol/L (22-32); Chloride 100 mmol/L (98-107); Estimated Glomerular Filt Rate > 60.0 mL/min (>60); Glucose 100 mg/dL (70-100); HEMOLYSIS < 15 (0-50); Magnesium 1.8 mg/dL (1.6-2.3); Potassium 4.2 mmol/L (3.4-5.1); Sodium 134 mmol/L (137-145)
[2020-07-25] MEDS: CARBIDOPA-LEVODOPA 25/100 TABLET 1 EACH PO ×3 (08:09→21:15)
[2020-07-25] MEDS: ASPIRIN EC 81 MG TABLET PO (08:09)
[2020-07-25] MEDS: BISACODYL 5 MG TABLET PO (08:13)
[2020-07-25] MEDS: polyethylene glycoL 3350 17 GM POWD.PACK PO (08:13)
[2020-07-25] MEDS: SODIUM CHLORIDE 0.9% FLUSH 10 ML IV ×2 (09:05→21:15)
--- NOTE | 2020-07-25 10:22 | OT.IP.TRT ---
Current Diagnoses Cerebral infarction, unspecified (07/22/20) Occupational Therapy Treatment Note M2 OT-IP Current Condition Start: 07/23/20 17:16 Freq: Status: Active Protocol: Document 07/23/20 14:55 [facility] (Rec: 07/23/20 17:40 [facility] [id number]) Occupational Therapy Current Condition Current Condition Evaluation Date 07/23/20 Treatment Diagnosis CVA, tremors Diagnosis Onset Date 07/22/20 M3 OT- IP Subjective and Pain Start: 07/23/20 17:16 Freq: Status: Active Protocol: Document 07/25/20 11:21 [facility] (Rec: 07/25/20 11:27 [facility] [id number]) OT- Subjective Occupational Therapy Visit Type Type Progress Note Visit Start Time 10:10 Visit Stop Time 10:22 Total Visit Minutes 12 Notes P.T. entered room as OT finished with pt. Occupational Therapy Visit Comments Patient Comments My hand is working so much better and I can walk without the walker. OT Pain Assessment Pain When Pain Assessed At Rest Pain Present Pain Present Denied Pain M4 OT- IP ADL's Start: 07/23/20 17:16 Freq: Status: Active Protocol: Document 07/25/20 11:21 [facility] (Rec: 07/25/20 11:27 [facility] [id number]) OT [id number] Comments OT Self-Feeding Comments not meal time OT ADL-Grooming General Evaluation Grooming Ability Standby Assistance Areas Needing Assistance Face Washing Comments OT Grooming Comments standing at sink OT ADL-Oral Care General Eval Oral Care Ability Standby Assistance Areas of Assistance Brushing Teeth Comments Oral Care Comments standing at sink OT ADL-Dressing General Eval Lower Body Dressing Ability Standby Assistance Areas Needing Assistance Socks Comments OT Dressing Comments seated in bed pt was able to use BUE to don socks OT ADL-Toileting General Evaluation Toileting Ability Standby Assistance Comments OT Toileting Comments PT stood at toilet for urination. OT ADL-Bathing Comments OT Bathing Comments Pt performed with nursing prior to OT M5 OT- IP IADL's Start: 07/23/20 17:16 Freq: Status: Active Protocol: Document 07/23/20 14:55 [facility] (Rec: 07/23/20 17:40 [facility] [id number]) OT-Instrumental Activities of Daily Living Home Safety Awareness Awareness of Need for Assistance at Home Good Awareness Ability to Problem Solve Emergency Able to Problem Solve Situations M6 OT- IP Functional Cognition Start: 07/23/20 17:16 Freq: Status: Active Protocol: Document 07/23/20 14:55 [facility] (Rec: 07/23/20 17:40 [facility] [id number]) Cognitive Factors Limiting Selfcare Function Cognitive Ability Level of Alertness Alert Patient Orientation Name,Date,Year,Day of Week, Place,Situation Attention Span Ability Capable of Focused Attention, Capable of Sustained Attention Ability to Follow Commands Able to Follow One Step Commands Memory Description Short Term Impaired Cognitive Tests SLUMS Pt scored 20/30 on the SLUMS and normal score for pt's level of education is 27/30. Pt having the most difficulty with short term memory, able to recall 1/5 objects after time passed and able to answer 1/4 questions right after paragraph read. Pt states prior had a decreased memory. Cognitive Comments Cognitive Assessment Comments Pt needing increased time for movements, especially durign small movement and tunrs with the FWW. Pt states knows what he want sto do but that his left side of his body will not cooperate and that he gets frustrated. OT- Vision and Hearing OT- Hearing Assessment OT- Hearing Assessment WFL OT- Vision Assessment Visual Acuity Glasses All The Time Vision Assessment Comments Pt complaiing of blurried vision and hoping to get new glasses soon. M7 OT- IP Mobility and Balance Start: 07/23/20 17:16 Freq: Status: Active Protocol: Document 07/25/20 11:21 [facility] (Rec: 07/25/20 11:27 [facility] [id number]) OT- Bed Mobility Assessment Supine to Sit Supine to Sit Assist Independent Scooting Scooting to Edge of Bed Independent OT-Transfer Assessment Sit to and From Stand Sit to and from Stand Standby Assistance,Contact Guard Assistance Transfers Transfer Ability Standby Assistance,Contact Guard Assistance Technique Transfer Destination Bed,Chair,Toilet Transfer Technique Stand Step Pivot Devices Transfer Assistive Devices Gait Belt Comments Mobility Comments Pt was able to mobilize around the room with CGA OT- Balance Assessment Sitting Balance and Reactions Static Sitting Balance Ability Normal Dynamic Sitting Balance Ability Good M8 OT- IP Objective Assessments Start: 07/23/20 17:16 Freq: Status: Active Protocol: Document 07/24/20 15:24 [facility] (Rec: 07/24/20 15:31 [facility] [id number]) OT Gross Range of Motion Upper Extremity Range of Motion Assessment Left Impaired OT Strength Comments Strength Comments Today pt able to actively flex and extend his finger and also in opposition thumb to fingers on LUE. Pt still having difficulty to to initiate activation of supinators in forearm and triceps. OT- Coordination Assessment Comments Coordination Comments Pt able to grasp the call light today and reach up to his glasses to take off with his left arm today. Pt feel the medication is really helping his tone, in addition pt states slept well for the 1st time in one year. OT-Muscle Tone Assessment Muscle Tone Location Left Upper Extremity Type of Tone Hypertonicity Severity of Tone Mild M9 OT- IP Assessment and Plan Start: 07/23/20 17:16 Freq: Status: Active Protocol: Document 07/25/20 11:21 [facility] (Rec: 07/25/20 11:27 [facility] [id number]) OT Summary Assessment and Plan Potential Rehabilitation Potential Good Analytic Complexity at Evaluation Moderate Summary OT Impairments Range of Motion,Strength, Balance,Coordination,Sensation ,Tone,Functional Cognition, Functional Mobility,Self- Feeding,Grooming,Dressing, Toileting,Bathing,Toilet Transfers,Shower Transfers, Activity Tolerance Progress Towards Goals Slow Progress due to Medical Issues,Slow Progress due to Activity Tolerance,Slow Progress due to Cognition Assessment Summary Pt is progressing with his abilities quickly. Pt is able to use his L UE as an active assist for ADLs today and demonstrates full extension. Pt ambulated around the room with SBA to CGA without a walker. Pt may progress to a level that would be safe for discharge home with home tana vs outpatient for continued therapy services. Goals Self-Feeding Goal Independent Grooming Goal Independent Dressing Goal Independent Toileting Goal Independent Bathing Goal Independent Toilet Transfer Goal Independent Shower Transfer Goal Independent Days to Meet Goals 15 Frequency of Treatment Frequency Of Treatment Once a Day Treatment Plan OT Treatment Plan ADL Training,Functional Cognition Training,Functional Mobility,Patient/Family Education,Discharge Planning Other Treatment Recommendations and Next shower Treatment Focus Discharge Recommendations OT Discharge Recommendations Home with Assistance,Home Health Other Discharge Recommendations Pt is progressing with his abilities and may be nearing appropriate for discharge home vs SNF. Transportation Needs at Discharge Private Vehicle
--- NOTE | 2020-07-25 10:25 | PT.IPTN ---
Current Diagnoses Cerebral infarction, unspecified (07/22/20) Physical Therapy Treatment Note M2 PT-IP Current Condition Start: 07/23/20 12:49 Freq: NEEDED Status: Active Protocol: Document 07/23/20 12:10 [facility] (Rec: 07/23/20 13:03 [facility] [id number]) Physical Therapy Current Condition Current Condition Evaluation Date 07/23/20 Treatment Diagnosis CVA; parkinsonism; difficulty in walking Onset Date 07/22/20 Precautions Other Precautions falls M3 PT-IP Subjective Start: 07/23/20 12:49 Freq: NEEDED Status: Active Protocol: Document 07/25/20 10:25 [facility] (Rec: 07/25/20 12:16 [facility] [id number]) Subjective Physical Therapy Visit Type Type Treatment Note Visit Start Time 10:25 Visit Stop Time 10:50 Total Visit Minutes 25 Number of [employer] HELPER Visits 0 Physical Therapy Visit Comments Patient Comments pt is agreeble to do PT Therapy Pain Assessment Pain When Pain Assessed At Rest Location Left Hip Intensity 2 Scale Used Numeric (0 - 10) Pain Management Techniques Distraction,Modification of Treatment,Re-positioning, Timing of Activity with Medications M4 PT-IP Mobility and Gait Start: 07/23/20 12:49 Freq: NEEDED Status: Active Protocol: Document 07/25/20 10:25 [facility] (Rec: 07/25/20 12:16 [facility] [id number]) PT-Transfer Assessment Sit to and From Stand Sit to and from Stand Standby Assistance,Contact Guard Assistance,Use of Upper Extremities Equipment Transfer Assistive Device None,Gait Belt Orthotic/Prosthetic Devices or Brace: No Comments Mobility Comments pt sitting on chair and agreed to do PT. pt just finished with OT and also stated that he walked with NAC around the nurses' station x 2. pt completed sit to stand from the chair SBA to CGA and ambulated in room without AD CGA to min A. episodes of freezing and required assist with weigh shifting to move LLE forward. standing balance/ tolerance completed. educated pt on posture, trunk control, weight shifting. completed weight shifting side to side. pt requiring rest breaks in between tasks due to decrease activity tolerance. completed single leg stance x 5 sec hold requiring max A to maintain standing balance without AD' pt completed sit <>stand from the chair without UE use x 8 reps CGA and cues. (+) posterior trunk LOB with initial first reps but able to complete and control trunk better afterwards after education and cues. pt stated that he is tired. positioned on chair. call light and table placed within reach. Gait Assessment Gait Gait Assistance Required: Contact Guard Assist,Minimum Assistance,1 Person Assist Distance (Feet) 30 Able to Maintain Weight Bearing Status Yes During Gait Assistive Devices Assistive Device None,Gait Belt Orthotic/Prosthetic Devices or Brace: No Gait Deviations General Gait Pattern Ataxic,Decreased Stride Length ,Decreased Feet Clearance, Flexed Trunk,Step-to Gait Factors Limiting Gait Function Factors Limiting Gait Function Decreased Activity Tolerance, Decreased Strength,Limited Range of Motion,Pain,Poor Balance,Poor Safety Awareness M5 PT-IP Objective Assessments Start: 07/23/20 12:49 Freq: NEEDED Status: Active Protocol: Document 07/23/20 12:10 [facility] (Rec: 07/23/20 13:03 [facility] [id number]) Orientation Orientation/Cognition Level of Alertness Alert Orientation Name,Place,Situation Language Function Ability No Deficits Noted Safety Awareness Decreased Safety Awareness Gross Range of Motion Lower Extremity ROM Assessment Within Functional Limits Strength Lower Extremity Strength Assessment Left Impaired Hip 4-/5 Knee 3+/5 Sensation Assessment Sensation Gross Sensation Left UE Impaired,Right LE Impaired,Left LE Impaired Sensation Description Numbness Comments Sensation Comments c/o numbness on L hand/fingers and bilateral toes Muscle Tone Muscle Tone WNL No Muscle Tone Location Left Upper Extremity Type of Tone Hypertonicity Severity of Tone Moderate Manifistation of Tone Resting Tremors M6 PT-IP Treatment Start: 07/23/20 12:49 Freq: NEEDED Status: Active Protocol: Document 07/25/20 10:25 [facility] (Rec: 07/25/20 12:16 AB [id number]) Physical Therapy Treatment Education Education Provided Safety Other Treatments Other Treatment Performed falls M7 PT-IP Assessment and Plan Start: 07/23/20 12:49 Freq: NEEDED Status: Active Protocol: Document 07/25/20 10:25 [facility] (Rec: 07/25/20 12:16 AB [id number]) PT Summary Assessment and Plan Potential Rehabilitation Potential Good Summary Impairments Pain,ROM,Strength,Balance, Coordination,Sensation,Tone, Cognition,Bed Mobility, Transfers,Gait,Activity Tolerance Progress Towards Goals Slow Progress due to Medical Issues,Slow Progress due to Activity Tolerance Assessment Summary pt progressing with mobility but continues to have decrease activity tolerance with episodes of freezing and difficulty elevating and moving LLE forwards and also presents with increase flexor tone on LUE with activity. pt will require SNF rehab to improve strength and mobility independence. Goals Bed Mobility Goal Standby Assistance Transfer Goal Standby Assistance,Front Wheeled Walker Gait Goal Standby Assistance,Front Wheel Walker Gait Distance 100 Other Goals improve ambualtion using SPC SBA 100 ft p/down 6 steps L rail + SPC SBA Days to Meet Goals 10 Frequency of Treatment Frequency Of Treatment Once a Day Treatment Plan Physical Therapy Treatment Plan Bed Mobility Training,Transfer Training,Gait Training, Therapeutic Exercise,Balance Retraining,Discharge Planning, Hot or Cold Pack,Neuromuscular Re-ed,Coordination Retraining ,Manual Therapy Precautions Other Precautions falls Recommendations To Nursing Amount of Assist Needed 1 Person Assist Discharge Recommendations PT Discharge Recommendations SNF Rehab Transportation Needs at Discharge Wheelchair/Cabulance
--- NOTE | 2020-07-25 11:10 | P.PN_ITS ---
Subjective Subjective Date Patient Seen: 07/25/20 Time Patient Seen: 11:10 Interval history: Mr. Olivo is a 55M with PMH of long standing alcohol use, quit in march, previous suicide attempt, and progressively worsening neurologic symptoms of what sound to be worsening rigidity who was admitted with slightly worsening weakness and found to have a subacute CVA. He reports improvement in symptoms today with less ridgidity after starting sinemet, although he is still quite stiff on exam. Denies palpitations, dizziness, nausea, vomiting, abdominal pain. Reports bilateral tingling in his toes. Will need to continue PT/OT, still recommended for SNF. Exam Vital Signs (past 8 hours): - 07/25/20 04:00 07/25/20 08:00 Temperature 97.1 F L 97.5 F L Pulse Rate 92 H 89 Respiratory Rate 18 19 Blood Pressure 137/97 H 139/105 H Pulse Oximetry 96 96 Oxygen Delivery Method Room Air Oxygen Flow Rate 0 Narrative Exam Narrative: GEN: no acute distress, masked facies HEENT: moist mucous membranes, PERRL CV: RRR, no murmurs PULM: CTAB/L, no wheezes, rhonchi, rales ABD: soft, nontender, nondistended, no organomegaly EXT: warm and well perfused with no edema NEURO: awake and alert x3, reported bilateral toe sensation decreased, stable from previous day, extraocular movements intact, 5/5 strength left upper and lower extremity with 5/5 strength on the right. He is slow to initiate movement, he has resting tremor on his left arm, he does have rigidity of his left extremities and to a lesser extent his right. PSYCH: flat affect, calm and cooperative with stable behavior. Objective Labs Result Diagrams: 07/23/20 04:30 07/25/20 04:52 Labs: Laboratory Results - last 24 hr 07/25/20 04:52 Sodium 134 L Potassium 4.2 Chloride 100 Carbon Dioxide 30 BUN 23 H Creatinine 0.64 L Estimated GFR > 60.0 BUN/Creatinine Ratio 35.9 H Glucose 100 Calcium 9.8 Magnesium 1.8 PFSH Medical History Alcohol abuse Social History household members: other lives independently: Yes Smoking Status: Former smoker alcohol intake: former Assessment & Plan Assessment & Plan narrative: Mr. Olivo is a 55M with PMH of long standing alcohol use, quite in march, previous suicide attempt, and progressively worsening neurologic symptoms of likely parkinsonism found to imaging to have had possible subacute stroke. 1. Subacute to old stroke, present on admission -radiology read is somewhat equivocal, but states that most likely cause of findings is subacute stroke -subacute nature would fit in timeline of patient's worsening symptoms, although progressive parkinsonian symptoms could also explain this. -ED physician spoke to neurology Dr. James at [facility] and discussed neurologic findings, and CT/MRI of brain -neurology recommended admit here and workup further for stroke with echo, aspirin, and statin. Reconsulted given rigidity and as discussed below. Relevant discussion including review of the MRI states this this may be indicative of old CVA (>2 weeks), rather than subacute. -overall clinical presentation per my evaluation is less likely to be stroke, and think it is unlikely basal ganglia white matter stroke would cause presenting symptoms. This is highly consistent with parkinsonism. -stroke evaluation without significant additional findings. -ordered for aspirin and statin -continue PT/OT/speech. 2. Parkinsonism, progressive. -patient has been presumably diagnosed with essential tremor as he is given propanolol and primidone previously -however his possible differential is quite broad but likely parkinsonian rigidity. These symptoms are leading to impairment of his daily living including inability to adequately feed himself. Slightly improved with muscle relaxant. -parkinsons, ET, MSA, lewy body dementia, or other similar parkinsonism diseases -reconsulted neurology at [facility] via phone, recommended initiation of sinemet trial and prompt outpatient neurology follow up. Symptoms have improved somewhat after initiation. -for now will continue propanolol for tremor, may be able to increase dose if needed or may consider gabapentin if needed additional treatment 3. Chronic alcohol abuse, history of -encouraged continued abstinence from alcohol DIET: per speech. DVT ppx: lovenox sc Code: DNR, proxy is brotherJason Dispo: pending PT/OT and unclear if SNF vs home depending on improvement with sinemet trial. COVID-19 COVID-19 status: Negative
--- NOTE | 2020-07-25 11:38 | CM.IDA ---
Initial DCP Assessment Note- Late Entry Patient is a 55 yo male, resident of [facility]. Patient presents w/debilitating loss of physical function throughout body. Patient admitted 07.22.20 w/paralysis throughout body which Dr Carrera suspects was progression of undiagnosed and untreated Parkinsons. Patient started on Sinemet yesterday and is much improved already. PCP: Getting established on [place] per patient Payer: [employer] Met w/patient yesterday for lengthy conversation w/OT [place]. 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 Patient admits to h/o heavy ETOH before the COVID-19 pandemic and an increase in use during the shut downs and isolation d/t COVID. Patient further explains he attempted suicide in February 2020 and has been sober since the recovery of this attempt. Patient had been living in [place] and decided to move to [facility] to be nearer to family members. He has been living in a shared living, sober house on [address]. Patient states he thinks he could stay w/a family member upon DC if needed, he has multiple family members that are worried about me. PT/OT recommending SNF at this time, and patient agreeable, however, patient has [employer] which might be a barrier to placement. In addition, patient's abilities, functionally and cognitively, have improved over the last 24 hrs and might continue to improve, making home w/family and HH more feasible. Spoke w/July at [facility] they are not contracted w/[facility] so would need to 1. Get an auth Monday d/t and 2. Ask for single case agreement. July suggested an in network SNF Following closely, will discuss above w/patient today 07.25.20 JAMI Luna Discharge Planning/Care Management CM Discharge Assessment Start: 07/24/20 16:14 Freq: Status: Active Protocol: Document 07/24/20 16:15 CARLEE (Rec: 07/24/20 16:27 CARLEE [id number]) Discharge Planning Assessment Assigned Rn Family JAMI Ybarra DPOA/Assigned Designee Name brother Lima Contact Information [phone] Advance Directives? No History Provided By Patient Prior Living Arrangements House Household Members other Comment Sober house, [facility] Type of transporation used prior to Drives own vehicle admit Comment Was able to drive until he became disabled recently Independent with ADL's Yes: Up until recently; ambulation has become difficult Is patient alert and oriented? Yes: Cognitive decline noted, short term memory loss Barriers to Discharge Yes Comment Therapy team recommending SNF, cannot safely DC home w/o assist at this time Discharge Plan Senior Living Facility Referrals Initiated Senior Living Additional Comment [facility] per patient request. Patient is 55 yo and has [employer] [employer], need to secure a SNF bed and they would likely need to secure a single cert agreement if patient is to DC to SNF Medicare Choice List Provided Yes SNF/HH Preference [facility], [place] Has Agency SNF been contacted Yes
--- NOTE | 2020-07-25 12:22 | PC.NURSE ---
Am shift Pt reporting that with Sinemet, significant change for improved mobility, and gait looks much better when ambulating to the BR. 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 Pt reporting improved ROM to LUE as well. Working on ful extension to BUE, and Pt is quite close. Denies pain at present, increased concern about constipation, Miralax and Docusate PO this am.
[2020-07-25] MEDS: SENNOSIDES 8.6 MG TABLET 17.2 MG PO (14:04)
[2020-07-25] MEDS: MAGNESIUM HYDROXIDE 30 ML UDC PO (14:04)
--- NOTE | 2020-07-25 15:55 | CM.DPNOTE ---
Addendum entered by JAMI Luna 07/25/20 16:15: Also started referrals to [facility] and [facility], in case patient was a candidate for these options and beds available/[facility] covers. Original Note: DCP Note This REACTOR FUELING SUPERVISOR unable to review home option (?) w/patient today d/t triage needs, however, did fax to [facility] and [facility] as potential SNF options. REACTOR FUELING SUPERVISOR team will continue to follow closely. Patient has made great improvement w/ Sinemet, may still benefit from SNF stay if SNF bed can be secured w/auth through [facility]. Patient may also be a good candidate for [facility] vs Acute Rehab (?) if beds available and [facility] covers. CARLEE
[2020-07-25] MEDS: ACETAMINOPHEN 325 MG TABLET 650 MG PO (19:45)
[2020-07-25] MEDS: ENOXAPARIN 40 MG/0.4 ML SYRINGE SUBCUT (21:14)
[2020-07-25] MEDS: ATORVASTATIN 20 MG TABLET 80 MG PO (21:14)
[2020-07-25] MEDS: MELATONIN 3 MG TABLET 6 MG PO (21:15)
[2020-07-26 03:46] VITALS: BP 149/98; PULSE 114; RESP 18; TEMP 36.6; O2SAT 97
[2020-07-26] MEDS: OXYCODONE IR 5 MG TABLET PO ×2 (03:50→08:47)
[2020-07-26 05:24] LABS: BUN Creatinine Ratio 28.8 (6-22); Blood Urea Nitrogen 17 mg/dL (9-20); Calcium 9.8 mg/dL (8.4-10.2); Carbon Dioxide 28 mmol/L (22-32); Chloride 100 mmol/L (98-107); Estimated Glomerular Filt Rate > 60.0 mL/min (>60); Glucose 102 mg/dL (70-100); HEMOLYSIS < 15 (0-50); Magnesium 1.9 mg/dL (1.6-2.3); Sodium 133 mmol/L (137-145)
[2020-07-26 07:22] VITALS: BP 142/90; PULSE 100; RESP 16; TEMP 36.2; O2SAT 95
[2020-07-26] MEDS: ASPIRIN EC 81 MG TABLET PO (08:14)
[2020-07-26] MEDS: CARBIDOPA-LEVODOPA 25/100 TABLET 1 EACH PO ×3 (08:14→20:58)
[2020-07-26] MEDS: SODIUM CHLORIDE 0.9% FLUSH 10 ML IV ×2 (08:49→20:58)
--- NOTE | 2020-07-26 11:29 | PT.IPTN ---
Current Diagnoses Cerebral infarction, unspecified (07/22/20) Physical Therapy Treatment Note M2 PT-IP Current Condition Start: 07/23/20 12:49 Freq: NEEDED Status: Active Protocol: Document 07/23/20 12:10 AB (Rec: 07/23/20 13:03 AB [id number]) Physical Therapy Current Condition Current Condition Evaluation Date 07/23/20 Treatment Diagnosis CVA; parkinsonism; difficulty in walking Onset Date 07/22/20 Precautions Other Precautions falls M3 PT-IP Subjective Start: 07/23/20 12:49 Freq: NEEDED Status: Active Protocol: Document 07/26/20 11:05 LJ (Rec: 07/26/20 11:29 LJ [id number]) Subjective Physical Therapy Visit Type Type Treatment Note Visit Start Time 10:36 Visit Stop Time 11:02 Total Visit Minutes 26 Number of RABBET OPERATOR Visits 1 Physical Therapy Visit Comments Patient Comments pt is agreeble to do PT. States he feels like he is improving and is able to use his left hand more since getting medication. M4 PT-IP Mobility and Gait Start: 07/23/20 12:49 Freq: NEEDED Status: Active Protocol: Document 07/26/20 11:05 LJ (Rec: 07/26/20 11:29 LJ [id number]) PT-Transfer Assessment Sit to and From Stand Sit to and from Stand Standby Assistance,Contact Guard Assistance,Use of Upper Extremities Equipment Transfer Assistive Device None,Gait Belt,Front Wheeled Walker Orthotic/Prosthetic Devices or Brace: No Transfers Transfer Destination Chair Transfer Technique ambulated using FWW Transfer Ability Level of Assist Standby Assistance,Contact Guard Assistance Comments Mobility Comments Pt sitting in chair upon arrival. Stated he walked in hallway at ~0300 with nursing. Pt stood from chair CGA without AD and ambulated to sink CGA. Pt performed several standing exercises (see below ) then ambulated in room without AD x30' CGA and SBA. Pt taking small steps when not using AD. Pt requested to ambulate in hallway. Gait Assessment Gait Gait Assistance Required: Contact Guard Assist Distance (Feet) 300 Able to Maintain Weight Bearing Status Yes During Gait Assistive Devices Assistive Device None,Gait Belt,Front Wheeled Walker Orthotic/Prosthetic Devices or Brace: No Gait Deviations General Gait Pattern Decreased Stride Length, Decreased Feet Clearance, Narrow Based Gait,Step-to Gait Factors Limiting Gait Function Factors Limiting Gait Function Decreased Activity Tolerance, Decreased Strength,Limited Range of Motion,Pain,Poor Balance,Poor Safety Awareness Comments Gait Comments After standing exercises at sink pt ambulated in room CGA without AD. Steps became shorter toward end of ambulation. No freezing episodes or assistance needed other than CGA for safety. Pt then given FWW and ambulated in hallway CGA-SBA x3 laps around ICU. Able to increase step length and pace with FWW. No rest breaks needed. Pt was aware of becomming fatigued and stated it was time to go back to the room. He ambulated to the chair and sat down in a controlled manner. Pt given all needs within reach. M5 PT-IP Objective Assessments Start: 07/23/20 12:49 Freq: NEEDED Status: Active Protocol: Document 07/23/20 12:10 AB (Rec: 07/23/20 13:03 AB [id number]) Orientation Orientation/Cognition Level of Alertness Alert Orientation Name,Place,Situation Language Function Ability No Deficits Noted Safety Awareness Decreased Safety Awareness Gross Range of Motion Lower Extremity ROM Assessment Within Functional Limits Strength Lower Extremity Strength Assessment Left Impaired Hip 4-/5 Knee 3+/5 Sensation Assessment Sensation Gross Sensation Left UE Impaired,Right LE Impaired,Left LE Impaired Sensation Description Numbness Comments Sensation Comments c/o numbness on L hand/fingers and bilateral toes Muscle Tone Muscle Tone WNL No Muscle Tone Location Left Upper Extremity Type of Tone Hypertonicity Severity of Tone Moderate Manifistation of Tone Resting Tremors M6 PT-IP Treatment Start: 07/23/20 12:49 Freq: NEEDED Status: Active Protocol: Document 07/26/20 11:05 LUISA (Rec: 07/26/20 11:29 [id number]) Physical Therapy Treatment Exercises Exercises Gluteal Sets,Quad Sets Education Education Provided Safety Other Treatments Other Treatment Performed Standing at sink holding to counter top: standing [id number] heel to buttocks x12 bilateral SLS on RLE x10 seconds, LLE x 6 seconds M7 PT-IP Assessment and Plan Start: 07/23/20 12:49 Freq: NEEDED Status: Active Protocol: Document 07/26/20 11:05 LUISA (Rec: 07/26/20 11:29 LJ [id number]) PT Summary Assessment and Plan Potential Rehabilitation Potential Good Summary Impairments Pain,ROM,Strength,Balance, Coordination,Sensation,Tone, Cognition,Bed Mobility, Transfers,Gait,Activity Tolerance Progress Towards Goals Slow Progress due to Medical Issues,Slow Progress due to Activity Tolerance Assessment Summary Pt improving with mobility without freezing episodes or difficulty elevating or moving LLE forward. With hamstring curls, pt experienced some spasming of the left glutes but still able to continue with exercises. SLS more difficult on LLE than RLE. Pt improved functional gait pattern and distance. Improved gait quality without AD. Pt would benefit from amplitude therapy such as LSVT Big for maintaining functional mobility and strength. Will require SNF rehab to improve function and strength to gain independent mobility. Goals Bed Mobility Goal Standby Assistance Transfer Goal Standby Assistance,Front Wheeled Walker Gait Goal Standby Assistance,Front Wheel Walker Gait Distance 100 Other Goals improve ambulation using SPC SBA 100 ft p/down 6 steps L rail + SPC SBA Days to Meet Goals 10 Frequency of Treatment Frequency Of Treatment Once a Day Treatment Plan Physical Therapy Treatment Plan Bed Mobility Training,Transfer Training,Gait Training, Therapeutic Exercise,Balance Retraining,Discharge Planning, Hot or Cold Pack,Neuromuscular Re-ed,Coordination Retraining ,Manual Therapy Precautions Other Precautions falls Recommendations To Nursing Amount of Assist Needed 1 Person Assist Discharge Recommendations PT Discharge Recommendations SNF Rehab
[2020-07-26 12:00] VITALS: BP 146/97; PULSE 97; RESP 16; TEMP 36.2; O2SAT 97
--- NOTE | 2020-07-26 13:07 | PM.PN.1 ---
Subjective Subjective Date Patient Seen: 07/26/20 Time Patient Seen: 13:07 Interval history: Mr. Olivo is a 55M with PMH of long standing alcohol use, quit in march, previous suicide attempt, and progressively worsening neurologic symptoms of what sound to be worsening rigidity who was admitted with slightly worsening weakness and found to have a subacute CVA. He reports improvement in symptoms today with less ridgidity after starting sinemet. Denies palpitations, dizziness, nausea, vomiting, abdominal pain. Reports bilateral tingling in his toes which has been chronic. Will need to continue PT/OT, still recommended for SNF. Exam Vital Signs (past 8 hours): - 07/26/20 07:22 07/26/20 12:00 Temperature 97.2 F L 97.1 F L Pulse Rate 100 H 97 H Respiratory Rate 16 16 Blood Pressure 142/90 H 146/97 H Pulse Oximetry 95 97 Oxygen Delivery Method Room Air Oxygen Flow Rate 0 Narrative Exam Narrative: GEN: no acute distress, masked facies HEENT: moist mucous membranes, PERRL CV: RRR, no murmurs PULM: CTAB/L, no wheezes, rhonchi, rales ABD: soft, nontender, nondistended, no organomegaly EXT: warm and well perfused with no edema NEURO: awake and alert x3, reported bilateral toe sensation decreased, stable from previous day, extraocular movements intact, 5/5 strength left upper and lower extremity with 5/5 strength on the right. He is slow to initiate movement, he has resting tremor on his left arm and pill rolling tremor L hand, he does have rigidity of his left extremities though improving and to a lesser extent his right. PSYCH: flat affect, calm and cooperative with stable behavior. Objective Labs Result Diagrams: 07/23/20 04:30 07/26/20 04:44 Labs: Laboratory Results - last 24 hr 07/26/20 04:44 Sodium 133 L Potassium 4.0 Chloride 100 Carbon Dioxide 28 BUN 17 Creatinine 0.59 L Estimated GFR > 60.0 BUN/Creatinine Ratio 28.8 H Glucose 102 H Calcium 9.8 Magnesium 1.9 PFSH Medical History Alcohol abuse Social History household members: other lives independently: Yes Smoking Status: Former smoker alcohol intake: former Assessment & Plan Assessment & Plan narrative: Mr. Olivo is a 55M with PMH of long standing alcohol use, quite in march, previous suicide attempt, and progressively worsening neurologic symptoms of likely parkinsonism found to imaging to have had possible subacute stroke. 1. Subacute to old stroke, present on admission -radiology read is somewhat equivocal, but states that most likely cause of findings is subacute stroke -subacute nature would fit in timeline of patient's worsening symptoms, although progressive parkinsonian symptoms could also explain this. -ED physician spoke to neurology Dr. James at [facility] and discussed neurologic findings, and CT/MRI of brain -neurology recommended admit here and workup further for stroke with echo, aspirin, and statin. Reconsulted given rigidity and as discussed below. Relevant discussion including review of the MRI states this this may be indicative of old CVA (>2 weeks), rather than subacute. -overall clinical presentation per my evaluation is less likely to be stroke, and think it is unlikely basal ganglia white matter stroke would cause presenting symptoms. This is highly consistent with parkinsonism. -stroke evaluation without significant additional findings. -ordered for aspirin and statin -continue PT/OT/speech. 2. Parkinsonism, progressive. -patient has been presumably diagnosed with essential tremor as he is given propanolol and primidone previously -however his possible differential is quite broad but likely parkinsonian rigidity. These symptoms are leading to impairment of his daily living including inability to adequately feed himself. Slightly improved with muscle relaxant. -parkinsons, ET, MSA, lewy body dementia, or other similar parkinsonism diseases -reconsulted neurology at [facility] [place] via phone, recommended initiation of sinemet trial and prompt outpatient neurology follow up. Symptoms have improved somewhat after initiation. -for now will continue propanolol for tremor, may be able to increase dose if needed or may consider gabapentin if needed additional treatment 3. Chronic alcohol abuse, history of -encouraged continued abstinence from alcohol DIET: per speech. DVT ppx: lovenox sc Code: DNR, proxy is brotherJason Dispo: pending PT/OT and unclear if SNF vs home depending on improvement with sinemet trial. Ideally SNF. COVID-19 COVID-19 status: Negative COVID-19 COVID-19 status: Negative
[2020-07-26 16:00] VITALS: BP 134/91; PULSE 99; RESP 17; TEMP 36.6; O2SAT 98
[2020-07-26 20:00] VITALS: BP 154/98; PULSE 95; RESP 16; TEMP 36.6; O2SAT 98
[2020-07-26] MEDS: ENOXAPARIN 40 MG/0.4 ML SYRINGE SUBCUT (20:57)
[2020-07-26] MEDS: MELATONIN 3 MG TABLET 6 MG PO (20:58)
[2020-07-26] MEDS: ATORVASTATIN 20 MG TABLET 80 MG PO (20:58)
[2020-07-26] MEDS: SENNOSIDES 8.6 MG TABLET 17.2 MG PO (20:58)
[2020-07-26] MEDS: CYCLOBENZAPRINE 10 MG TABLET PO (22:26)
[2020-07-27 00:01] VITALS: BP 163/95; PULSE 101; RESP 20; TEMP 36.5; O2SAT 94
[2020-07-27] MEDS: ACETAMINOPHEN 325 MG TABLET 650 MG PO (00:01)
[2020-07-27 03:03] VITALS: BP 161/84; PULSE 89; RESP 18; TEMP 36.6; O2SAT 94
[2020-07-27] MEDS: PROPRANOLOL 40 MG TABLET PO (04:09)
[2020-07-27] MEDS: OXYCODONE IR 5 MG TABLET PO (05:23)
--- NOTE | 2020-07-27 06:05 | PC.NURSE ---
Press Tender Smoke Signal Note-Patient has been awake most of the night, watching TV, sitting up in chair, ambulated around unit once with walker and SBA. Medicated with Tylenol for Lt hip pain, prn propranolol for anxiety and mild rigidity to LUE, and oxycodone for 6/10 earache on left side HRR 80s-100, BP 163/95 and 161/84.
[2020-07-27 08:00] VITALS: BP 142/87; PULSE 81; RESP 14; TEMP 36.2; O2SAT 98
[2020-07-27] MEDS: polyethylene glycoL 3350 17 GM POWD.PACK PO (08:32)
[2020-07-27] MEDS: CYCLOBENZAPRINE 10 MG TABLET PO (08:32)
[2020-07-27] MEDS: CARBIDOPA-LEVODOPA 25/100 TABLET 1 EACH PO ×2 (08:32→14:27)
[2020-07-27] MEDS: ASPIRIN EC 81 MG TABLET PO (08:32)
--- NOTE | 2020-07-27 10:13 | PC.NURSE ---
PT WITH STABLE VITAL SIGNS REPORTS BEING ABLE TO MOVE HIS BODY BETTER SINCE BEGINNING ON NEW RX: CARBA/LEVO DOPA. HE DOES STATE HE HAD A TOUGH NIGHT AFTER ABOUT 0300 WITH RESTLESSNESS. TAKING DIET WELL- HE HAS ORDERED IT PRE CUT UP TO EASE HIS WORK OF EATING- WORKING WITH BOTH PT/OT THIS AM FOLLOWING HIS SHOWER AND PT DID C/O EAR PAIN - EAR GTTS ORDERED PER MD- IV REMOVED IT WAS OUTDATED AND BOTHERING PT
--- NOTE | 2020-07-27 10:38 | OT.IP.TRT ---
Current Diagnoses Cerebral infarction, unspecified (07/22/20) Occupational Therapy Treatment Note M2 OT-IP Current Condition Start: 07/23/20 17:16 Freq: Status: Active Protocol: Document 07/23/20 14:55 [facility] (Rec: 07/23/20 17:40 [facility] [id number]) Occupational Therapy Current Condition Current Condition Evaluation Date 07/23/20 Treatment Diagnosis CVA, tremors Diagnosis Onset Date 07/22/20 M3 OT- IP Subjective and Pain Start: 07/23/20 17:16 Freq: Status: Active Protocol: Document 07/27/20 09:48 [facility] (Rec: 07/27/20 12:08 [facility] [id number]) OT- Subjective Occupational Therapy Visit Type Type Treatment Note Visit Start Time 09:47 Visit Stop Time 10:35 Total Visit Minutes 38 Occupational Therapy Visit Comments Patient Comments Pt agreed to redo cognitive assessment. Patient/Caregiver Goals TO go to rehab. OT Pain Assessment Pain When Pain Assessed At Rest Pain Present Pain Present Denied Pain M4 OT- IP ADL's Start: 07/23/20 17:16 Freq: Status: Active Protocol: Document 07/27/20 09:48 [facility] (Rec: 07/27/20 12:08 [facility] [id number]) OT [id number] Comments OT Self-Feeding Comments not meal time OT ADL-Grooming Comments OT Grooming Comments Not performed. OT ADL-Oral Care Comments Oral Care Comments NOt performed. OT ADL-Dressing General Eval Lower Body Dressing Ability Standby Assistance Areas Needing Assistance Socks Comments OT Dressing Comments Pt able to miladis/doff socks on his own and using both hands but mainly his right hand. OT ADL-Toileting Comments OT Toileting Comments Pt did not have to use the toilet. OT ADL-Bathing Comments OT Bathing Comments Pt states did with nursing aid earlier and had difficulty to wash his back. Able to try use of long wash cloth and pt able to use both hands on each side of the towel in order to scrub his back appropriately. To have pt try to do all the set-up on his own and stand for the shower tomorrow for OT session if still here. M5 OT- IP IADL's Start: 07/23/20 17:16 Freq: Status: Active Protocol: Document 07/23/20 14:55 [facility] (Rec: 07/23/20 17:40 [facility] [id number]) OT-Instrumental Activities of Daily Living Home Safety Awareness Awareness of Need for Assistance at Home Good Awareness Ability to Problem Solve Emergency Able to Problem Solve Situations M6 OT- IP Functional Cognition Start: 07/23/20 17:16 Freq: Status: Active Protocol: Document 07/27/20 09:48 [facility] (Rec: 07/27/20 12:08 [facility] [id number]) Cognitive Factors Limiting Selfcare Function Cognitive Ability Level of Alertness Alert Patient Orientation Name,Date,Year,Day of Week, Place,Situation Attention Span Ability Capable of Focused Attention, Capable of Sustained Attention Ability to Follow Commands Able to Follow One Step Commands Memory Description Immediate Impaired Cognitive Tests SLUMS Pt scored 21/30 on the SLUMS today and only improvement able to recall 2/5 objects after time passed versus only able to recall 1/5 on 07/23/20. Pt still insistent that he has a terrible short term memory even before his CVA. Cognitive Comments Cognitive Assessment Comments Pt scored 114 seconds for [place] Making Part B which implies moderate impairments for visual attention, task switching, mental flexibility, speed of processing and for mental flexibility. Pt score did not rate on the chart for his age, cut off was 93 seconds for 20th percentile. Pt having difficulty to read and figure out 4 variable chart and needing CARLOS to help figure out his percentile for his age group for 9 Hole Peg Test. M7 OT- IP Mobility and Balance Start: 07/23/20 17:16 Freq: Status: Active Protocol: Document 07/27/20 09:48 [facility] (Rec: 07/27/20 12:08 [facility] [id number]) OT-Transfer Assessment Sit to and From Stand Sit to and from Stand Standby Assistance,Contact Guard Assistance Transfers Transfer Ability Contact Guard Assistance Comments Mobility Comments CGA without the FWW to stand and sit back down to the recliner. OT- Balance Assessment Sitting Balance and Reactions Static Sitting Balance Ability Normal Dynamic Sitting Balance Ability Good Standing Balance and Reactions Static Standing Balance Ability Fair M9 OT- IP Assessment and Plan Start: 07/23/20 17:16 Freq: Status: Active Protocol: Document 07/27/20 09:48 [facility] (Rec: 07/27/20 12:08 [facility] [id number]) OT Summary Assessment and Plan Potential Rehabilitation Potential Good Analytic Complexity at Evaluation Moderate Summary OT Impairments Range of Motion,Strength, Balance,Coordination,Sensation ,Tone,Functional Cognition, Functional Mobility,Self- Feeding,Grooming,Dressing, Toileting,Bathing,Toilet Transfers,Shower Transfers, Activity Tolerance Progress Towards Goals Progressing Toward Goals Assessment Summary Pt noted improvement for LUE to be able to incorporate during all ADl now and overall increased AROM and strength. Pt not able to potato picker coins and do in hand manipulation with 4 objects in his hand.9 hole peg test right hand 29 seconds and left hand 39 seconds. Goals Self-Feeding Goal Independent Grooming Goal Independent Dressing Goal Independent Toileting Goal Independent Bathing Goal Independent Toilet Transfer Goal Independent Shower Transfer Goal Independent Days to Meet Goals 10 Frequency of Treatment Frequency Of Treatment Once a Day Treatment Plan OT Treatment Plan ADL Training,Functional Cognition Training,Functional Mobility,Patient/Family Education,Discharge Planning Other Treatment Recommendations and Next shower Treatment Focus Discharge Recommendations OT Discharge Recommendations Home with Assistance,Home Health,Home vs SNF/acute rehab Other Discharge Recommendations Pt would benefit from skilled rehab/acute rehab, however if not able to go pt would benefit from having someone to assist him at home for some needs. Transportation Needs at Discharge Private Vehicle
--- NOTE | 2020-07-27 10:41 | PT.IPTN ---
Current Diagnoses Cerebral infarction, unspecified (07/22/20) Physical Therapy Treatment Note M2 PT-IP Current Condition Start: 07/23/20 12:49 Freq: NEEDED Status: Active Protocol: Document 07/23/20 12:10 [facility] (Rec: 07/23/20 13:03 [facility] [id number]) Physical Therapy Current Condition Current Condition Evaluation Date 07/23/20 Treatment Diagnosis CVA; parkinsonism; difficulty in walking Onset Date 07/22/20 Precautions Other Precautions falls M3 PT-IP Subjective Start: 07/23/20 12:49 Freq: NEEDED Status: Active Protocol: Document 07/27/20 09:50 [facility] (Rec: 07/27/20 10:41 [facility] [id number]) Subjective Physical Therapy Visit Type Type Treatment Note Visit Start Time 09:50 Visit Stop Time 10:03 Total Visit Minutes 13 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 Rounds team arrives as well. Pt agreeable to PT for mobility, states that he feels better after starting Sinemet. M4 PT-IP Mobility and Gait Start: 07/23/20 12:49 Freq: NEEDED Status: Active Protocol: Document 07/27/20 09:50 [facility] (Rec: 07/27/20 10:41 [facility] [id number]) PT-Transfer Assessment Sit to and From Stand Sit to and from Stand Standby Assistance Equipment Transfer Assistive Device Gait Belt,Front Wheeled Walker Transfer Ability Level of Assist Standby Assistance Comments Mobility Comments Cues to push up from the chair to stand and to reach back for it before sitting. Pt is able to perform this, less use of L hand compared to the right Gait Assessment Gait Gait Assistance Required: Contact Guard Assist Distance (Feet) 100 Assistive Devices Assistive Device Gait Belt Orthotic/Prosthetic Devices or Brace: No Gait Deviations General Gait Pattern Decreased Stride Length, Decreased Feet Clearance, Festinating,Flexed Trunk Factors Limiting Gait Function Factors Limiting Gait Function Abnormal Tonal Influences, Decreased Activity Tolerance, Decreased Strength, Incoordination,Limited Range of Motion,Poor Balance Comments Gait Comments 100'x2 gait for functional balance assessment without AD: pt has festinating advancement of LLE for all starts of gait forward once stopped or when changing from retropulsion to forward gait. PT provides CGA, holding gait belt throughout assessment: FGA tasks: he is able to make some changes in gait speed and does con't with balance impairment with this, minimal right and left and up and down head turns, he is able to take bigger steps backwards and the does with forward gait . Recommend that pt get up with nsg to walk in hallways with rolling walker to improve overall mobility and cardiovascular health while in hospital. 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 PT-Balance Assessment Comments Other Balance Tests/Deviations/Treatment See balance comments under : gait, functional gait assessment tasks today M5 PT-IP Objective Assessments Start: 07/23/20 12:49 Freq: NEEDED Status: Active Protocol: Document 07/23/20 12:10 [facility] (Rec: 07/23/20 13:03 [facility] [id number]) Orientation Orientation/Cognition Level of Alertness Alert Orientation Name,Place,Situation Language Function Ability No Deficits Noted Safety Awareness Decreased Safety Awareness Gross Range of Motion Lower Extremity ROM Assessment Within Functional Limits Strength Lower Extremity Strength Assessment Left Impaired Hip 4-/5 Knee 3+/5 Sensation Assessment Sensation Gross Sensation Left UE Impaired,Right LE Impaired,Left LE Impaired Sensation Description Numbness Comments Sensation Comments c/o numbness on L hand/fingers and bilateral toes Muscle Tone Muscle Tone WNL No Muscle Tone Location Left Upper Extremity Type of Tone Hypertonicity Severity of Tone Moderate Manifistation of Tone Resting Tremors M6 PT-IP Treatment Start: 07/23/20 12:49 Freq: NEEDED Status: Active Protocol: Document 07/27/20 09:50 [facility] (Rec: 07/27/20 10:41 [facility] [id number]) Physical Therapy Treatment Education Education Provided Safety M7 PT-IP Assessment and Plan Start: 07/23/20 12:49 Freq: NEEDED Status: Active Protocol: Document 07/27/20 09:50 [facility] (Rec: 07/27/20 10:41 [facility] [id number]) PT Summary Assessment and Plan Potential Rehabilitation Potential Good Status of Condition at Evaluation Evolving Summary Impairments Pain,ROM,Strength,Balance, Coordination,Tone,Bed Mobility ,Transfers,Gait,Activity Tolerance Progress Towards Goals Slow Progress due to Pain,Slow Progress due to Medical Issues,Slow Progress due to Activity Tolerance Assessment Summary Initiated functional gait tasks today and pt does present with festinating gait pattern, decreased left extremity use, mask-like expression of face. He will benefit from ongoing acute and post-acute PT to improve strength, balance, gait and function. Barriers include progressive disease process. Goals Bed Mobility Goal Independent Transfer Goal Independent Gait Goal Standby Assistance,Cane Gait Distance 150 Other Goals Pt will ascend and descend 6 steps with left rail and SPC with SBA Frequency of Treatment Frequency Of Treatment Once a Day Treatment Plan Physical Therapy Treatment Plan Bed Mobility Training,Transfer Training,Gait Training, Therapeutic Exercise,Balance Retraining,Discharge Planning, Hot or Cold Pack,Neuromuscular Re-ed,Coordination Retraining ,Manual Therapy Precautions Other Precautions Fall risk Recommendations To Nursing Amount of Assist Needed 1 Person Assist Discharge Recommendations PT Discharge Recommendations SNF Rehab Transportation Needs at Discharge Private Vehicle
--- NOTE | 2020-07-27 11:08 | P.PN_ITS ---
Subjective Subjective Date Patient Seen: 07/27/20 Time Patient Seen: 11:10 Interval history: Mr. Olivo is a 55M with PMH of long standing alcohol use, quit in march, previous suicide attempt, and progressively worsening neurologic symptoms of what sound to be worsening rigidity who was admitted with slightly worsening weakness and found to have a subacute CVA. Symptoms are improved but have stalled. Complains of Left ear itching. Denies palpitations, dizziness, nausea, vomiting, abdominal pain. Reports bilateral tingling in his toes which has been chronic. Will need to continue PT/OT, still recommended for SNF. Exam Vital Signs (past 8 hours): - 07/27/20 08:00 Temperature 97.2 F L Pulse Rate 81 Respiratory Rate 14 Blood Pressure 142/87 H Pulse Oximetry 98 Oxygen Delivery Method Room Air Oxygen Flow Rate 0 Narrative Exam Narrative: GEN: no acute distress, masked facies HEENT: moist mucous membranes, PERRL CV: RRR, no murmurs PULM: CTAB/L, no wheezes, rhonchi, rales ABD: soft, nontender, nondistended, no organomegaly EXT: warm and well perfused with no edema NEURO: awake and alert x3, reported bilateral toe sensation decreased, stable from previous day, extraocular movements intact, 5/5 strength left upper and lower extremity with 5/5 strength on the right. He is slow to initiate movement, he has resting tremor on his left arm and pill rolling tremor L hand, he does have rigidity of his left extremities though improving and to a lesser extent his right. PSYCH: flat affect, calm and cooperative with stable behavior. Objective Labs Result Diagrams: 07/23/20 04:30 07/26/20 04:44 [facility] Medical History Alcohol abuse Social History household members: other lives independently: Yes Smoking Status: Former smoker alcohol intake: former Assessment & Plan Assessment & Plan narrative: Mr. Olivo is a 55M with PMH of long standing alcohol use, quite in march, previous suicide attempt, and progressively worsening neurologic symptoms of likely parkinsonism found to imaging to have had possible subacute stroke. 1. Subacute to old stroke, present on admission -radiology read is somewhat equivocal, but states that most likely cause of findings is subacute stroke -subacute nature would fit in timeline of patient's worsening symptoms, although progressive parkinsonian symptoms could also explain this. -ED physician spoke to neurology Dr. James at [facility] and discussed neurologic findings, and CT/MRI of brain -neurology recommended admit here and workup further for stroke with echo, aspirin, and statin. Reconsulted given rigidity and as discussed below. Relevant discussion including review of the MRI states this this may be indicative of old CVA (>2 weeks), rather than subacute. -overall clinical presentation per my evaluation is less likely to be stroke, and think it is unlikely basal ganglia white matter stroke would cause presenting symptoms. This is highly consistent with parkinsonism. -stroke evaluation without significant additional findings. -ordered for aspirin and statin -continue PT/OT/speech. 2. Parkinsonism, progressive. -patient has been presumably diagnosed with essential tremor in the past as he was given propanolol and primidone previously -however his possible differential is quite broad but likely parkinsonian rigidity. These symptoms were leading to impairment of his daily living including inability to adequately feed himself. Slightly improved with muscle relaxant and now improving with sinemet trial but symptoms have stalled. -parkinsons, ET, MSA, lewy body dementia, or other similar parkinsonism diseases -reconsulted neurology at [facility] via phone, recommended initiation of sinemet trial and prompt outpatient neurology follow up. Symptoms have improved somewhat after initiation as noted above. He still continues to need assistance due to his symptoms. These symptoms can likely improve with further medication adjustments but these need to be done with a neurologist which is not available in this hospital and recommendation currently is for outpatient follow up. He has no outside living situation, kicked out of his sober house due to his significant needs given parkinsonism. It is possible he could live by himself after adjustments in medical therapy and continue rehabilitation. -for now will continue propanolol for tremor, may be able to increase dose if needed or may consider gabapentin if needed additional treatment 3. Chronic alcohol abuse, history of -encouraged continued abstinence from alcohol DIET: per speech. DVT ppx: lovenox sc Code: DNR, proxy is brotherJason Dispo: pending PT/OT and unclear if SNF vs home depending on improvement with sinemet trial. Ideally SNF. Will need to work on alternate living situation if unable to obtain authorization for SNF. Appreciate care management assistance. COVID-19 COVID-19 status: Negative
[2020-07-27] MEDS: NEOMY/POLYM B/HC OTIC 10 ML 4 DROPS EAR-LEFT ×2 (11:34→14:27)
--- NOTE | 2020-07-27 11:34 | CM.DANOTE ---
DCP continued: [facility] for [facility] due to previous ETOH abuse and MH. JAN
--- NOTE | 2020-07-27 13:49 | CM.DPC ---
DCP/continued: Reviewed chart. MANAGER ER has received notification that no SNF that has been reviewing has accepted. Therefore, MANAGER ER discussed case with therapy. Sarah with OT reports that patient has improved significantly over the last 24hrs. Therapy made aware that SNF placement is highly unlikely. MANAGER ER met with patient this AM explained role. Patient reports that he currently does not have residence. Patient was at sober living house but because his medical issues have become more complicated he was asked to move. Patient reports that he has had neurological issues for approximately 4yrs. Patient reports that he started drinking heavily to help with symptoms. Patient reports that he has not had alcohol for 3 months. Last drink was on 04-03-20. Patient also reports 1 suicide attempt in the past. Patient denies any current SI/HI. Patient moved to [place] in June to be closer to his family. Patient has appointment with outpatient provider on 08-10-20. Per [facility] provider patient will need follow up with neurology. Patient suspected to have undiagnosed Parkinson's? With patient's permission placed call to patient's mother Cortney and cousin Amber. Both indicate that they will assist with what they can. Mother out of state and Amber resides in [place], [place]. Amber reports that patient can come to her house upon d/c. Amber also reports that she will assist with termination clerk planning for patient. MANAGER ER to provide him with community resources to start long-term process. Dr. Carrera reports that patient is medically stable for discharge today. Amber made aware and will plan to be at [facility] around 3:00pm. Amber requesting outpatient order for therapies. Dr. Carrera made aware and order obtained for FWW for home use. RN updated on the above. D/C expected later this afternoon. P: Home with cousin/Amber. Community resources provided. JAMI Heck
--- NOTE | 2020-07-27 14:32 | PC.NURSE ---
pt preparing for discharge to home- with family, iv discontinued and pt is completely dressed -he is slow but much more stable- will review discharge plan and post-hospital follow up care when his family arrives -many resources given for pcp and neurology follow up
--- NOTE | 2020-07-27 14:49 | P.DS_ITS ---
History of Present Illness History of Present Illness Date Patient Seen: 07/27/20 Time Patient Seen: 14:50 Chief complaint: Going paralyzed over body/poss Parkinsons Narrative: Per Dr. Stevenson, Mr. Olivo is a 55M with PMH of tremor, alcohol abuse quit in march 2020, ?CVA who states that he has been having neurologic symptoms that have been progressively getting worse. History is vague and difficult to get a clear answer. Patient states that he recently arrived in [place] from [place]. He was being seen in [place] for a tremor that developed in his left hand. Apparently he had previously been prescribed primidone, and is now prescribed propanolol. This indicates that patient was probably thought to have essential tremor. Per the ED note, there was workup for Parkinsons, but per patient he never saw a neurologist, and the patient now says he self-diagnosed as Parkinsons and has not been diagnosed as such. He did state he tried to commit suicide in March due to the worsening tremors. He has progressively been worsening and over the last two weeks has noted a tremor in his right hand. He has difficulty with rising from chair. He has difficulty with starting or stopping walking. He has difficulty with sitting. He has slowed speech. He has some drooling. He has not had hallucination, he has not had altered mental status. He has not had incontinence. He denies fevers or chills. No abdominal pain. No shortness of b reath. No difficulty with vision, no difficulty with swallowing. Discharge Providers Provider Date of admission: 07/22/20 17:31 Discharge Date: 07/27/20 Consults: 07/22/20 19:14 Consult to Discharge Planning Routine Comment: Consult to Occupational Therapy Evaluate & Treat Comment: Physician Instructions: Evaluate and treat Consult to Physical Therapy Evaluate & Treat Comment: Physician Instructions: Evaluate and Treat 07/22/20 19:28 Consult to Dietitian, Adult Routine Comment: Reason For Exam: weight loss Consult to Pastoral Services Routine Comment: patient request 07/27/20 12:59 Consult to Home Health Routine Comment: DX: Parkinson's Reason For Exam: FWW for home use Discharge provider: Ifeanyi Carrera DO Summary Hospital Course Discharge Diagnosis: Please see hospital course by problem list noted below. Hospital Course: Mr. Olivo is a 55M with PMH of long standing alcohol use, quite in march, previous suicide attempt, and progressively worsening neurologic symptoms of likely parkinsonism found to imaging to have had prior CVA. 1. Subacute to old stroke, present on admission -radiology read is somewhat equivocal, but states that most likely cause of findings is subacute stroke -subacute nature would fit in timeline of patient's worsening symptoms, although progressive parkinsonian symptoms could also explain this. -ED physician spoke to neurology Dr. James at [facility] and discussed neurologic findings, and CT/MRI of brain -neurology recommended admit here and workup further for stroke with echo, aspirin, and statin. Reconsulted given rigidity and as discussed below. Relevant discussion including review of the MRI states this this may be indicative of old CVA (>2 weeks), rather than subacute. -overall clinical presentation per my evaluation is less likely to be stroke. This is highly consistent with parkinsonism. -stroke evaluation without significant additional findings including echocardiogram and no significant vascular narrowing. -continued on asa and statin for secondary prevention -recommend continued PT as an outpatient. 2. Parkinsonism, progressive. -patient has been presumably diagnosed with essential tremor in the past as he was given propanolol and primidone previously -however his possible differential is quite broad but likely parkinsonian rigidity. These symptoms were leading to impairment of his daily living including inability to adequately feed himself. Slightly improved with muscle relaxant initially and now improving with sinemet trial but symptoms have stalled somewhat. -reconsulted neurology at [facility] via phone, recommended initiation of sinemet trial and prompt outpatient neurology follow up. Symptoms have improved somewhat after initiation as noted above. He still continues to need assistance due to his symptoms. These symptoms can likely improve with further medication adjustments but these need to be done with a neurologist which is not available in this hospital and recommendation currently is for outpatient follow up. He was discharged with a cousin. He will need prompt follow up with neurology and PCP for continued medication adjustments. I again called [facility] on the day of discharge, whom plan to refer patient for neurological follow up in [place] hopefully in 4-6 weeks. -discharged on sinemet TID, follow up with PCP initially, then with neurology as discussed above. -continue PT as an outpatient. 3. Chronic alcohol abuse, history of -encouraged continued abstinence from alcohol 4. Severe Acute protein calorie malnutrition - secondary to inability to feed reliably. Appreciate dietary recommendations. Status at Discharge Cognitive/behavioral status at discharge: oriented Functional status at discharge: uses cane/walker Overall status at discharge: patient is progressing back to baseline Time Spent with Patient Time spent: Greater than 30 minutes Exam Vital Signs (past 8 hours): - 07/27/20 08:00 Temperature 97.2 F L Pulse Rate 81 Respiratory Rate 14 Blood Pressure 142/87 H Pulse Oximetry 98 Oxygen Delivery Method Room Air Oxygen Flow Rate 0 Narrative Exam Narrative: GEN: no acute distress, masked facies HEENT: moist mucous membranes, PERRL CV: RRR, no murmurs PULM: CTAB/L, no wheezes, rhonchi, rales ABD: soft, nontender, nondistended, no organomegaly EXT: warm and well perfused with no edema NEURO: awake and alert x3, reported bilateral toe sensation decreased, stable from previous day, extraocular movements intact, 5/5 strength left upper and lower extremity with 5/5 strength on the right. He is slow to initiate movement, he has resting tremor on his left arm and pill rolling tremor L hand, he does have rigidity of his left extremities though improving and to a lesser extent his right. PSYCH: flat affect, calm and cooperative with stable behavior. Objective Labs Result Diagrams: 07/23/20 04:30 07/26/20 04:44 [facility] Medical History Alcohol abuse Social History household members: other lives independently: Yes Smoking Status: Former smoker alcohol intake: former Discharge Plan Discharge Plan Patient Disposition: Home Provider Discharge Comment: You were admitted to the hospital with stiffness, Probably due to a disease called Parkinson's. You were found to likely have had an old stroke on MRI. You are being discharged on a trial of the medication for Parkinson's. You should receive a follow-up call from with the [facility] or Dr. james tomorrow for timing regarding neurology follow-up. Please call us for PT referral. Your diet should be adequate if you eat a variety of foods, n utrition recommended supporting nutrition with supplemental shakes if possible (ensure for example). Discharge orders & Medications Prescriptions: New aspirin 81 mg tablet,delayed release (DR/EC) 81 mg PO DAILY 30 Days Qty: 30 RF: 0 atorvastatin 80 mg tablet 80 mg PO BEDTIME 30 Days Qty: 30 RF: 0 carbidopa-levodopa 25-100 mg tablet 1 tab PO TID 30 Days Qty: 90 RF: 0 cyclobenzaprine 10 mg tablet 10 mg PO TID PRN (Reason: muscle spasm) 7 Days Qty: 20 RF: 0 oxycodone 5 mg tablet 5 mg PO Q6H PRN (Reason: pain) 7 Days Qty: 30 RF: 0 Discontinued propranolol 10 mg Tablet 10 mg PO TID PRN (Reason: tremers) RF: 0 Medication counseling provided by Pharmacist: Yes Pharmacist Comment: Patient expressed concern over elevated blood pressure. He has not received any medications to control blood pressure in-house. Advised to follow up with PCP to see if tx is warranted. Diet/Activity/Treatments Diet: Diet as Tolerated Activity: As tolerated Visit Report/Discharge Packet Instructions: Parkinson Disease, DI for Benign Essential Tremor
--- NOTE | 2020-07-27 17:41 | PC.NURSE ---
Discharge Note: Pt given discharge instructions on diet, follow-up, stroke s and s, mobility, fall safety, activity and medications (medication teaching done by pharmacist). Pt's cousin was present for discharge teaching and pt's questions answered. Pt given walker (DME) on discharge. Pt taken to front entry by [employer] to private vehicle without incident.
--- NOTE | 2020-08-03 14:21 | CM.DPNOTE ---
Amber Becker - ([phone]) called to check on pt. PT/OT order. Apparently she was supposed to get a prescription at D/C. Although Dr. Carrera wasn't working today. Dr. Justice had seen the patient while he was an inpatient and was agreeable to write a prescription. I mailed the therapy to Amber's address: [address] [place] [address]; [place] [address]. Amber was also confused about Neurologist not calling them 07/28 per discharge note. I contacted [facility] and [facility] and found that Dr. Amezcua only sees inpatients. I explained to Amber that I didn't know what Dr. Carrera meant by his discharge note, but that I didn't see her getting a call from [facility]. I offered to ask Dr. Carrera when he returned on . but couldn't answer that piece now. I did suggest she call and make a neurology appointment with a neurologist for kelechi. I recommended she ask pt. PCP (he established care last week with someone at [facility]) for neuro consult. Amber said that wasn't necessary as they had that piece. She was going to call [facility] for appointment when we hung up. Amber expressed her gratitude. I gave her my office phone # in case she had any additional questions/issues that popped up form this AC visit.
== END 2020-07-27 16:40 | disposition home or self-care (01) | DRG 45 ==
LOC: ED 17:31 → AC 17:32 → ICU 19:07
PROVIDERS: Internal Medicine; Admitting Provider Internal Medicine; Emergency Provider Emergency Medicine; Referring Provider Emergency Medicine; Visit Provider Internal Medicine
DX: I63.9 Cerebral infarction, unspecified (principal); G20 Parkinson's disease; E43 Unspecified severe protein-calorie malnutrition; F10.11 Alcohol abuse, in remission; Z20.822 Contact with and (suspected) exposure to COVID-19; R26.2 Difficulty in walking, not elsewhere classified; G62.9 Polyneuropathy, unspecified; R29.703 NIHSS score 3; Z87.891 Personal history of nicotine dependence; Z86.73 Personal history of transient ischemic attack (TIA), and cerebral infarction without residual deficits; Z68.24 Body mass index [BMI] 24.0-24.9, adult
CPT/HCPCS: 36415; 36592; 70450; 70553; 80048; 80053; 80061; 80305; 80320; 81001; 82140; 83036; 83690; 83735; 84443; 85025; 87635; 87797; 93005; 93306; 93880; 97110; 97116; 97129; 97162; 97166; 97530; 97535; 99285; C9803; A9579; J1650